=== PATIENT | male | born 1940 | race Caucasian/White ===

== ENCOUNTER 2022-05-24 16:00 | Outpatient (RCR) | payer MEDICARE, SELFPAY ==
--- NOTE | 2022-04-11 17:11 | PT.OPE ---
PT [facility] PT [facility] Out[facility] Eval Start: 04/11/22 12:32 Freq: Status: Active Protocol: Document 04/11/22 17:09 CIRAT (Rec: 04/11/22 17:10 CJT [id number]) E-signed By Steven Guerrero PT Physical Therapy Outpatient Evaluation Insurance Information Recert Due Date 05/25/22 Insurance Name Medicare B Medical Diagnosis M79.18 - Myalgia, other site Treating Diagnosis M25.552 - L hip pain Referring Nancy Titus MD Subjective Subjective Pt presents with L buttock pain on going for several months. Thinks that it started after he was attending a lot of medical appointments for his after she was diagnosed with cancer. Also notes that since his 's cancer diagnosis that he has been helping with a lot more shores around the house including cleaning, dishes, laundry, and making his bed and his 's bed. Pain is made worse with sitting in a hard chair. Pt denies pain in his back as well as shooting pain down his leg. Has been getting more Yeison horses down his L leg the last few months as well. Pt was diagnosed with PD two years ago. Has tremor in his L hand and is L handed. 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 [employer] Preferred Name Benito Precautions Therapy Limitations/Systems Review Not Limited Objective Other/Pertinent Objective Lumbar ROM Extension - 15 Flexion - can reach mid-fernando, notes pain in his ischial tuberosity region on L R/L Side Bend - 24/16 R/L Rotation - mild impairments B R Hip ROM Flexion - 120 Abduction - 35 IR/ER - 30/25 Extension - 0 L Hip ROM Flexion - 120 Abduction - 35 IR/ER - 25/25 Extension - 0 R knee ROM - WNL L knee ROM - WNL R Hip Strength Flexion - /5 MMT Abduction - 4/5 MMT Adduction - 5/5 MMT IR - 5/5 MMT ER - 5/5 MMT Extension - DNT L Hip Strength Flexion - 3/5 MMT Abduction - 4/5 MMT Adduction - 4/5 MMT IR - 5/5 MMT ER - 5/5 MMT Extension - DNT R knee Extension - 5/5 MMT R Knee Flexion - 5/5 MMT L knee Extension - 5/5 MMT L knee Flexion - 4/5 MMT * pain at ischial tuberosity R ankle DF - 5/5 MMT L ankle DF - 5/5 MMT Palpation: pt reports pain/ tenderness with palpation to proximal hamstring tendon at ischial tuberosity on L Gait: antalgic gait on L Assessment Assessment/Impression Pt is an 81 year old male who presents to PT clinic with L buttock pain. Pain is centrally located in L gluteal region. Pain is made worse with direct palpation to L ischial tuberosity. Strength and ROM is limited in B hips and pt does note occasional radiating pain into his groin. Motions that stretch his L hamstring or create resistance to his L hamstring also reproduce his symptoms. Benito seems to be dealing with a minor hamstring strain that is healing very slowly and or slowly getting worse as he continues to use poor body mechanics with chores around the house. The nature of the pts condition was explained and all questions were answered to the pts satisfaction. Skilled PT services are medically necessary to address deficits and return patient to highest level of function. Recommend physical therapy sessions 2/ week for 6 weeks. Pt agrees with this plan. Printout of HEP was given for I completion and pt gives verbal understanding of each exercise . Plan of Care Rehabilitation Potential Good Physical Therapy Goals STG - To be completed in 2-3 weeks: 1. Pt will report reduction in posterior hip pain by factor of 2 so that they may sit for dinner with family. 2. Pt will demo ability to perform 15 hamstring curls with RTB without increase in his pain as indication of healing hamstring tendon on L. LTG - To be completed in 8 weeks: 1. Pt to be I with HEP so that they may I manage progression of symptoms. 2. Pt will demo equal and pain free motion in B hips to reduce straining forces in SIJ and pelvis with ambulation. 3. Pt will report max 2/10 discomfort with activities such as walking and sitting so that they may shop for groceries and sit to watch movies with family with minimal pain. 4. Pt will demo ability to walk at top speed without increase in hamstring pain as indication of proper firing of proximal HS tendon with eccentric motions used during ambulation. Treatment Plan/Direct Interventions Gait Training,Heat,Ice/Cold/ Vasopneumatic,Joint Mobilization,Manual Therapy, Neuromuscular Re-ed,Self-Care/ Home Management,Therapeutic Exercises,Ultrasound Frequency/Duration 2/week for 6 weeks Patient Will Be Discharged From Therapy Completion of LTG(s),Skills Plateau,Independent w/HEP, Independently Progressing Evaluation Billing Untimed Code Treatment Minutes 35 PT Eval No Charge No Complexity Low Certification Information Initial Certification Date 04/11/22 Ending Certification Date 05/25/22 Provider Signature Shows Agreement With POC & Medical Necessity Physician Signature & Date Requested Please Sign/Date Here Physician Comment/Change : Physician NPI Number #
== END 2022-06-22 10:16 | disposition home or self-care (01) ==
PROVIDERS: PCP Internal Medicine; Visit Provider Internal Medicine
DX: M79.18 Myalgia, other site (principal); Z51.89 Encounter for other specified aftercare
CPT/HCPCS: 97032; 97110; 97140; 97161

== ENCOUNTER 2023-02-21 14:33 | Emergency (ER) | payer MEDICARE, SELFPAY ==
[2023-02-21 14:37] VITALS: BP 112/69; PULSE 64; RESP 20; TEMP 36.6; O2SAT 98; BMI 26.6
--- NOTE | 2023-02-21 15:30 | CRLHL7_ITS ---
For Patients: As a result of the Cures Act, medical imaging exams and procedure reports are released immediately into your electronic medical record. You may view this report before your referring provider. If you have questions, please contact your health care provider. Indication: Pain and injury Comparison: None available. Technique: Standing AP, lateral, and sunrise views of the right knee were obtained Findings: There is no displaced fracture or dislocation. There is mild tricompartmental degenerative change with medial joint space loss and marginal osteophyte formation. There is minimal tibial spine spurring. There is mild prepatellar soft tissue swelling. Impression: Mild tricompartmental degenerative changes and prepatellar soft tissue swelling without displaced fracture. Dictated by Paulo Darby MD @ 02/21/2023 4:52:33 PM (Electronically Signed)
--- NOTE | 2023-02-21 15:55 | ED.NURSE ---
Patient back from radiology.
--- NOTE | 2023-02-21 17:18 | ED_ITS ---
HPI - General Adult General Date Seen: 02/21/23 Chief complaint: Extremity Pain/Injury, Lower Stated complaint: Fall Time Seen by Provider: 02/21/23 14:40 Source: patient Mode of arrival: ambulatory Limitations: no limitations History of Present Illness HPI narrative: Patient is an 82-year-old male who presents for evaluation of right knee pain which has been bothering him for the past week or so. He says Dexter was helping but the past couple of days it does not seem to be helping as much. He denies any injury. He says that it hurts to bend his knee to put a sock on. If he walks straight it does not bother him too much but with changes of direction he has pain primarily in the medial knee. He has not noted any swelling or redness, no other joint pains. No history of significant problems with the knee previously according to the patient, but I do see a previous arthroscopy on that side.. Related Data Previous Rx's Medication Instructions Recorded carbidopa 25 mg-levodopa 100 mg 2.5 tab PO TID #675 tabs 01/18/22 tablet atenolol 25 mg tablet 25 mg PO BID #180 tabs 08/28/22 lisinopril 20 mg tablet 20 mg PO DAILY #90 tabs 08/28/22 tamsulosin 0.4 mg capsule 0.4 mg PO DAILY #90 caps 08/28/22 Allergies Allergy/AdvReac Type Severity Reaction Status Date / Time No Known Allergies Allergy Unknown Verified 01/18/23 14:30 Review of Systems Status of ROS: Reports: 6 or more systems reviewed and unremarkable except as noted in History and below PFSH PFS Medical History History of alcoholism ?F10.21 - Alcohol dependence, in remission (ICD-10) Surgical History History of vasectomy ?Z98.52 - Vasectomy status (ICD-10) History of hernia repair ?Z98.890 - Other specified postprocedural states (ICD-10) ?Z87.19 - Personal history of other diseases of the digestive system (ICD-10) History of colonoscopy ?Z98.890 - Other specified postprocedural states (ICD-10) History of arthroscopy of right knee ?Z98.890 - Other specified postprocedural states (ICD-10) Family History Other Adopted Tremor Social History Narrative: has 4 children- 1 in motorcycle accident Smoking Status: Never smoker Do you use any of these nicotine containing products: None Second hand tobacco smoke exposure: No How often do you have a drink containing alcohol: never How often do you have six or more drinks on one occasion: Never AUDIT-C Alcohol total score: 0 Non-prescribed substance use: denies use Little interest or pleasure in doing things: not at all Feeling down, depressed, or hopeless: several days service: Yes Exam Narrative: Exam Narrative: Vital signs reviewed In general, alert, well-appearing elderly male. Extremities: Examination of the knee shows no swelling, effusion, erythema warmth. He has full range of motion although he notes pain with flexion. He has some tenderness along the medial joint line. Distal CMS is normal. Skin: Warm dry well perfused. Const: Vital Signs, click to edit/add: Vital Signs - 24 hr 02/21/23 14:37 Temperature 97.9 F Pulse Rate [Pulse Oximeter] 64 Respiratory Rate 20 Blood Pressure [Ri ght Upper Arm] 112/69 Pulse Oximetry 98 Oxygen Delivery Me thod Room Air Documenting provider has reviewed patient's vital signs: yes Course Course ED Course: I did x-rays of the right knee which by my review did not show any significant findings. Radiology notes mild degenerative changes and a little bit of soft tissue swelling anterior to the patella, which I do not really appreciate clinically. He notes that he would like to have something different for pain for couple of days, I would like him to continue with the Aleve which he actuall y stopped taking couple of days ago he says he did not feel it was controlling the pain. I think it be good to have the anti-inflammatory effect, he says he tolerates it fine in terms of his stomach. Make sure to take this with food and I would not take it for more than a few more days. I prescribed oxycodone #4, 1/2-1 tab if needed for more severe pain. Ice may be helpful as well. We made a follow-up appointment for him with Orthopedics to see if an injection would be beneficial or if further imaging is needed. Vital Signs Vital signs: Initial Vital Signs Temperature 97.9 F 02/21/23 14:37 Temperature Source Temporal Artery Scan 02/21/23 14:37 Pulse Rate 64 02/21/23 14:37 Respiratory Rate 20 02/21/23 14:37 Blood Pressure 112/69 02/21/23 14:37 Blood Pressure Mean 83 02/21/23 14:37 Blood Pressure Position Sitting 02/21/23 14:37 Pulse Oximetry 98 02/21/23 14:37 Oxygen Delivery Method Room Air 02/21/23 14:37 Vital Signs Temperature 97.9 F 02/21/23 14:37 Pulse Rate 64 02/21/23 14:37 Respiratory Rate 20 02/21/23 14:37 Blood Pressure 112/69 02/21/23 14:37 Pulse Oximetry 98 02/21/23 14:37 Oxygen Delivery Method Room Air 02/21/23 14:37 Temperature 97.9 F 02/21/23 14:37 Pulse Rate 64 02/21/23 14:37 Respiratory Rate 20 02/21/23 14:37 Blood Pressure 112/69 02/21/23 14:37 Pulse Oximetry 98 02/21/23 14:37 Oxygen Delivery Method Room Air 02/21/23 14:37 Discharge Plan Discharge Clinical Impression: Knee pain, right Patient Disposition: Home, Self-Care Condition: Stable Instructions: Knee Pain (ED) Additional Instructions: Continue with Aleve twice a day for few more days, make sure you take this with food. Oxycodone if needed for more severe pain. Orthopedic follow-up as scheduled. Be helpful as well. Prescriptions: No Action lisinopril 20 mg tablet 20 mg PO DAILY Qty: 90 3RF atenolol 25 mg tablet 25 mg PO BID Qty: 180 3RF tamsulosin 0.4 mg capsule 0.4 mg PO DAILY Qty: 90 3RF carbidopa-levodopa 25-100 mg tablet 2.5 tab PO TID Qty: 675 2RF Follow Up/Referrals: Nancy Chiu MD [Primary Care Provider] - Stand Alone [facility]: [facility] Inst[facility]
[2023-02-21 17:22] VITALS: BP 112/69; PULSE 64; RESP 20; TEMP 36.6
--- NOTE | 2023-02-21 17:26 | ED.NURSE ---
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
== END 2023-02-21 17:24 | disposition home or self-care (01) ==
PROVIDERS: Emergency Provider Emergency Medicine; PCP Internal Medicine
DX: M25.561 Pain in right knee (principal)
CPT/HCPCS: 73562; 99283

== ENCOUNTER 2023-05-23 11:43 | Outpatient (CLI) | payer MEDICARE, SELFPAY ==
--- OUTSIDE RECORDS SUMMARY | 2023-05-23 11:50 | XMS_ITS | Referral Summary ---
Author Name Unknown Organization [facility] Address [id number] [place] [address] Care Team Providers Care Cap Inspector Name Role Phone Li Meyer [facility] REP Unavailable [phone] [facility]- Primary Care Provider Allergies Active Allergy Reactions Criticality Noted Date Comments No Known Drug Allergy 10/22/2002 Medications Medication Sig Dispensed Refills Start Date End Date Status tamsulosin (FLOMAX) 0.4 MG capsuleIndications: Benign non-nodular prostatic hyperplasia with lower urinary tract symptoms,Urge incontinence of urine Take 2 capsules (0.8 mg) by mouth daily 180 capsule 1 11/23/2017 Active lisinopril (PRINIVIL/ZESTRIL) 20 MG tabletIndications:H TN, goal below 140/90 Take 1 tablet (20 mg) by mouth daily 90 tablet 1 06/19/2018 Active metoprolol tartrate (LOPRESSOR) 50 MG tabletIndications:H TN, goal below 140/90 TAKE 1 TABLET(50 MG) BY MOUTH TWICE DAILY 180 tablet 1 06/19/2018 Active Additional Information Patient taking differently: 100 mg DAILY, TAKE 1 TABLET(50 MG) BY MOUTH TWICE DAILY, Reported on 02/03/2019 Vitamin D, Cholecalciferol, 25 MCG (1000 UT) CAPS Take 1,000 Units by mouth daily as needed (Takes daily between and ) 0 Active ferrous gluconate (FERGON) 324 (38 Fe) MG tabletIndications:Haven ang GI bleed Take 1 tablet (324 mg) by mouth daily (with breakfast) 30 tablet 1 02/04/2019 Active Active Problems Problem Noted Date Diagnosed Date Lower GI bleed 02/03/2019 Urge incontinence of urine 05/16/2015 Benign non-nodular prostatic hyperplasia with lower urinary tract symptoms 05/16/2015 Essential and other specified forms of tremor HTN, goal below 140/90 07/06/2013 Advance Care Planning 01/28/2013 Overview: Advance Care Planning: Receipt of ACP document: Received: Health Care Directive which was witnessed or notarized on 07/07/14. Document not previously scanned. Validation form completed and scanned. Code Status needs to be updated to reflect choices in most recent ACP document. Confirmed/documented designated decision maker(s). See permanent comments section of demographics in clinical tab. View document(s) and details by clicking on code status. Added by Salvador Mcneill on 07/07/2014. Advance Care Planning: Initial facilitation introduction: Homero Zaldivarmarguerite presented for initial session regarding ACP at a group session. He was accompanied by . Honoring Choices information provided and resources reviewed. He currently wishes to complete an ACP document. He currently has the following questions or concerns about Advance Care Planning: none. Confirmed/documented designated decision maker(s). See permanent comments section of demographics in clinical tab. Added by Salvador Mcneill on 07/07/2014 S/P colonoscopy 01/22/2013 Overview: Repeat in 5 yrs or 2018 Over weight 12/11/2012 Benign essential tremor 01/03/2012 Diverticulosis of colon 07/13/2011 Gout 10/10/2010 Overview: Quality/mj Anxiety 04/12/2010 CARDIOVASCULAR SCREENING; LDL GOAL LESS THAN 130 02/12/2010 Elevated fasting blood sugar 10/15/2009 Low back pain 07/05/2008 Sciatica 07/05/2008 Effusion of lower leg joint 06/15/2004 Overview: R knee pain, Xrays negative, doesn't think PT will help; has seen Dr. Kelly in the past. 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 Provider to review L foot pain, intermittent [729.5] [729.5] 2003 Overview: neat ball and 1st MTP, painful to bear weight CERVICALGIA [723.1] [723.1] 11/15/2003 Overview: R hand IDIO PERIPH NEURPTHY NEC [356.8] 11/15/2003 Overview: R hand Essential hypertension 10/30/2002 Overview: Problem list name updated by automated process. Provider to review Chem Dep in recovery 10/30/2002 Immunizations Name Administration Dates Next Due COVID-19 MONOVALENT 12+ (Pfizer) 01/26/2021 Influenza (High Dose) 3 dennis nt vaccine 02/09/2019,02/04/2018,03/16/2017,2016,02/17/2014,01/03/2012 Influenza (IIV3) PF 02/27/2010,02/25/2008,2005 Influenza Vaccine 65+ (Fluzone HD) 01/26/2021 Pneumo Conj 13-V (2010&after) 04/17/2016 Pneumococcal 23 valent 02/04/2018,02/25/2008 TD,PF 7+ (Tenivac) 12/14/2005 TDAP Vaccine (Adacel) 09/13/2016 Social History Tobacco Use Types Packs/Day Years Used Date Smoking Tobacco: Former Cigarettes 2 5 Q uit: 01/05/1962 Smokeless Tobacco: Never Comments:1961 Alcohol Use Standard Drinks/Week Comments No 0 (1 standard drink = 0.6 oz pur e alcohol) 6 months sober on 04/29/04 PHQ-2 Answer Date Recorded PHQ-2 Score 0 04/29/2018 Adolescent Education Answer Date Record ed Getting School Help Needed Not on file 01/20 Sex and Gender Information Value Date Recorded Sex Assigned at Not on file Gender Identity Not on file Sexual Orientation Not on file Last Filed Vital Signs Vital Sign Reading Time Taken Comments Blood Pressure 146/95 08/12/2020 5:45 PM CDT Pulse 54 08/12/2020 5:45 PM CDT Temperature 36.6 ??C (97.9 ??F) 08/12/2020 5:09 PM CD T Respiratory Rate 18 08/12/2020 5:45 PM CDT Oxygen Saturation 96% 08/12/2020 5:45 PM CDT Inhaled Oxygen Concentration - - Weight 81.6 kg (180 lb) 04/10/2019 8:50 AM HOROLOGIST Height 172.7 cm (5' 8) 04/10/2019 8:50 AM HOROLOGIST Body Mass Index 27.37 04/10/2019 8:50 AM HOROLOGIST Plan of Treatment Not on file Advance Directives For more information, please contact: [phone] Documents on File Type Date Recorded 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 Expl anation Advance Directives and Living Will 07/07/2014 Health Care Directiv e 07/07/14 Latest Code Status on File Code Status Date Activated Date Inactivated Comments Full Code 02/04/2019 1:19 PM 04/10/2019 8:27 AM Question Answer Comments Code status determined by: Discussion wi th patient/legal decision maker Code Status History Code Status Date Activated Date Inactivated Comments Full Code 02/03/2019 10:35 PM 02/04/2019 1:19 PM Question Answer Comments Code status determined by: Discussion wi th patient/legal decision maker Care Teams Cap Inspector Relationship Specialty Start Date End Date [facility]- [address] [place] [address] PCP - General 04/10/19 Li Meyer APRN [facility] [address] [place] [address] Nurse Practitioner Nurse Practitioner 02/17/14
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
--- OUTSIDE RECORDS SUMMARY | 2023-05-23 11:50 | XMS_ITS | Encounter Summary ---
Author Name Unknown Organization [place] Address [address] [facility] [place] [address] Care Team Providers Care Tape Edge Machine Operator Name Role Phone Li Meyer CARLOS TEACHER VOCAL Unavailable + [phone] Martha Ramires MD Primary Care Prov ider Martha Ramires MD Unavailable + Martha Ramires MD Unavailable + [facility] Reason for Visit * Reason Comments Medication Refill ibuprofen (ADVIL/MOT RIN) 600 MG tablet Encounter Details Date Type Department Care Team (Late st Contact Info) Description 09/12/2016 Refill [facility] [id number] [place] [address] [phone] Martha Ramires MD PRIMARY ENT [address] [facility] [address] [place] [id number] Medication Refill (ibuprofen (ADVIL/MOTRIN) 600 MG tablet) Social History Tobacco Use Types Packs/Day Years [...] on file documented as of this encounter Miscellaneous Notes * Telephone Encounter - Terrie Domínguez RN - 09/13/2016 8:07 AM CDT Due for visit and labs. Appt today. Sent to provider in case want to change med at visit. Terrie Domínguez RN * Telephone Encounter - Jazmyne Prajapati - 09/12/2016 8:25 AM CDT ibuprofen (ADVIL/MOTRIN) 600 MG tablet Last Written Prescription Date: 02/10/16 Last Quantity: 90, # refills: 1 Last Office [place] [facility] [place] [facility] prescribing provider: 04/17/2016 Next 5 appointments (look out 90 days) Sep 13, 2016 3:45 PM CDT SHORT with Martha Ramires MD [facility] [address] [place] [address] [phone] Creatinine Date Value Ref Range Status 10/03/2015 0.95 0.66 - 1.25 mg/dL Final Lab Results Component Value Date AST 12 10/03/2015 Lab Results Component Value Date ALT 10/03/2015 BP Readings from Last 3 Encounters: 04/17/16 138/88 06/20/15 138/87 05/16/15 160/80 ELVIS Howell September 12, 2016 8:26 AM documented in this encounter Plan of Treatment Not on file documented as of this encounter Visit Diagnoses Diagnosis Sprain of left knee, unspecified ligament, initial encounter documented in this encounter Care Teams Tape Edge Machine Operator Relationship Specialty [place] [address] [place] [address] PCP - General Family Practice 04/17/16 02/02/19 Martha Ramires MD PRIMARY ENT [address] [place] [address] PCP - Assigned PCP 05/22/15 06/17/18 [facility] [address] [place] [address] PCP - General 02/03/19 04/09/19 [facility] [address] [place] [address] PCP - General 04/10/19 Li Meyer APRN TEACHER VOCAL [address] [place] [address] Nurse Practitioner Nurse Practitioner 02/17/14 Martha Ramires MD PRIMARY ENT [address] [place] [address] Assigned PCP 05/22/15 11/26/20 documented as of this encounter
--- OUTSIDE RECORDS SUMMARY | 2023-05-23 11:50 | XMS_ITS | Encounter Summary ---
Author Name Unknown Organization [place] Address [address] [facility] [address] Care Team Providers Care Public Health Policy Analyst Name Role Phone Li Meyer CARLOS UTILITY MECHANIC SUPERVISOR Unavailable + [phone] Martha Ramires MD Primary Care Prov ider Martha Ramires MD Unavailable + Martha Ramires MD Unavailable + [facility]- Primary Care Provider [facility]- Primary Care Provider Reason for Visit * Reason Onset Date Comments Medication Refill 12/12/2017 ibuprofen (ADV IL/MOTRIN) 600 MG tablet Encounter Details Date Type Department Care Team (Late st Contact Info) Description 12/12/2017 Refill [facility] [address] [place] [phone] Martha Ramires MD PRIMARY ENT [address] [facility] [address] [place] [address] Medication Refill (ibuprofen (ADVIL/MOTRIN) 600 MG tablet) [...] Telephone Encounter - Terrie Domínguez RN - 12/12/2017 11:41 AM CDT Images from the original note were not included. Failing protocol due to age. Using regularly. Sent to provider. Please advise. Terrie Domínguez RN 11/23/17 ?? 6. Osteoarthritis of multiple joints, unspecified osteoarthritis type - ibuprofen (ADVIL/MOTRIN) 600 MG tablet; TAKE 1 TABLET(600 MG) BY MOUTH EVERY 8 HOURS NEEDED FOR MODERATE PAIN Dispense: 30 tablet; Refill: 1 - Comprehensive metabolic panel - CBC with platelets ?? See Patient Instructions ?? Martha Ramires MD [facility] Instructions Return in about 6 months (around 05/26/2018) for medication recheck. * Telephone Encounter - Jazmyne Prajapati - 12/12/2017 8:53 AM CDT Requested Prescriptions Pending Prescriptions Disp Refills ??? ibuprofen (ADVIL/MOTRIN) 600 MG tablet [Pharmacy Med Name: IBUPROFEN 600MG TABLETS] 30 tablet 0 Last Written Prescription Date: 11/23/17 Last Fill Quantity: 30, # refills: 1 Last Office Visit: 11/23/2017 Future Office Visit: Sig: TAKE 1 TABLET(600 MG) BY MOUTH EVERY 8 HOURS NEEDED FOR MODERATE PAIN NSAID Medications Failed 12/12/2017 8:11 AM Failed - Patient is age 6-64 years Passed - Blood pressure under 140/90 in past 12 months BP Readings from Last 3 Encounters: 11/23/17 132/82 11/22/16 130/72 09/27/16 130/78 Passed - Normal ALT on file in past 12 months Recent Labs Lab Test 11/23/17 1125 ALT 17 Passed - Normal AST on file in past 12 months Recent Labs Lab Test 11/23/17 1125 AST 11 Passed - Recent (12 mo) or future (30 days) visit within the authorizing provider's specialty Patient had office visit in the last 12 months or has a visit in the next 30 days with authorizing provider or within the authorizing provider's specialty. See Patient Info tab in inbasket, or Choose Columns in Meds & Orders section of the refill encounter. Passed - Normal CBC on file in past 12 months Recent Labs Lab Test 11/23/17 1125 WBC 8.8 RBC 4.77 HGB 13.9 HCT 42.3 PLT 250 For [facility] ONLY: [id number] = WBC, EHGN411 = RBC Passed - Normal serum creatinine on file in past 12 months Recent Labs Lab Test 11/23/17 1125 CR 0.88 documented in this encounter Plan of Treatment Not on file documented as of this encounter Visit Diagnoses Diagnosis Osteoarthritis of multiple joints, unspecified osteoarthritis type documented in this encounter Care Teams Public Health Policy Analyst Relationship Specialty [place] [address] [place] [address] PCP - General Family Practice 04/17/16 02/02/19 Martha Ramires MD PRIMARY ENT [address] [facility] [address] [address] PCP - Assigned PCP 05/22/15 06/17/18 [facility]- [address] [place] [address] PCP - General 02/03/19 04/09/19 [facility]- [address] [place] [address] PCP - General 04/10/19 Li Meyer APRN [facility] [address] [place] [address] Nurse Practitioner Nurse Practitioner 02/17/14 Martha Ramires MD PRIMARY ENT [address] [facility] [address] [place] [address] Assigned PCP 05/22/15 11/26/20 documented as of this encounter
--- OUTSIDE RECORDS SUMMARY | 2023-05-23 11:50 | XMS_ITS | Clinical Summary ---
Author Name Unknown Organization [place] Address [address] [facility] [place] [address] Care Team Providers Care Ecologist Name Role Phone Li Meyer CARLOS ACCESS NURSE Unavailable [phone] [facility]- Primary Care Provider Allergies [...] 7+ (Tenivac) 12/14/2005 TDAP Vaccine (Adacel) 09/13/2016 Family History * Patient is adopted Medical History Relation Comments Respiratory Son 1 asthma Relation Status Comments Father Maternal Grandfather Maternal Grandmother Mother Other Other Homreo is Adopted Paternal Grandfather Paternal Grandmother Son 1 Alive Son 2 Alive Son 3 Alive Social History Tobacco Use Types Packs/Day Years [...] 81.6 kg (180 lb) 04/10/2019 8:50 AM INSULATION EXTRUDER OPERATOR Height 172.7 cm (5' 8) 04/10/2019 8:50 AM INSULATION EXTRUDER OPERATOR Body Mass Index 27.37 04/10/2019 8:50 AM INSULATION EXTRUDER OPERATOR Plan of Treatment Health Maintenance Due Date Last Done Comments ANNUAL REVIEW OF HM ORDERS 1940 CT COLONOGRAPHY 1940 FLEX SIG 1940 sDNA (Cologuard) 1940 ZOSTER IMMUNIZATION (1 of 2) 1990 RSV VACCINE ( & 60+) (1 - 1-dose 60+ series) 2000 MEDICARE ANNUAL WELLNESS VISIT 03/09/2009 03/09/2008 FALL RISK ASSESSMENT 11/23/2018 11/23/2017, 09/27/2016, 04/17/2016, Additional history exists LIPID 02/18/2019 02/18/2014, 11/13, 02/15/2009, Additional history exists ADVANCE CARE PLANNING 07/08/2019 07/07/2014, 013 FIT 02/04/2020 02/03/2019 CBC 08/12/2021 08/12/2020, 01/14, 02/03/2019, Additional history exists CMP 08/12/2021 08/12/2020, 01/14, 11/23/2017, Additional history exists COVID-19 Vaccine ( season) 2022 01/26/2021, 06/25/2020, 06/04/2020 INFLUENZA VACCINE (#1) 2022 , 02/09/2019, 02/04/2018, Additional history exists PHQ-2 (once per calendar year) 2023 09/27/2016, 04/17/2016, 01/05/2015 COLONOSCOPY 04/10/2024 04/10/2019, 03/16, 01/21/2013, Additional history exists COLORECTAL CANCER SCREENING 04/10/2024 DTAP/TDAP/TD IMMUNIZATION (2 - Td or Tdap) 09/13/2026 09/13/2016, 12/14/2005 Pneumococcal Vaccine: 65+ Years Completed 02/04/2018, 04/17/2016, 02/25/2008 HPV IMMUNIZATION Aged Out No longer e ligible based on patient's age to complete this topic IPV IMMUNIZATION Aged Out No longer e ligible based on patient's age to complete this topic MENINGITIS IMMUNIZATION Aged Out No l onger eligible based on patient's age to complete this topic RSV MONOCLONAL ANTIBODY Aged Out No l onger eligible based on patient's age to complete this topic Advance Directives For more information, please contact: [phone] Documents on File Type Date Recorded Patient Sidehand Expl anation Advance Directives and Living Will [...] wi th patient/legal decision maker Care Teams Ecologist Relationship Specialty Start Date End Date [facility]- [address] [place] [address] PCP - General 04/10/19 Li Meyer APRN ACCESS NURSE [address] [place] [address] Nurse Practitioner Nurse Practitioner 02/17/14
--- OUTSIDE RECORDS SUMMARY | 2023-05-23 11:50 | XMS_ITS | Encounter Summary ---
Author Name Unknown Organization [place] Address [address] [facility] [place] [address] Care Team Providers Care Marketing And Outreach Coordinator Name Role Phone Li Meyer CARLOS SPECIAL FORCES ENGINEER SERGEANT Unavailable + [phone] Martha Ramires MD Primary Care Prov ider Martha Ramires MD Unavailable + Martha Ramires MD Unavailable + [facility]- Primary Care Provider [facility]- Primary Care Provider Reason for Visit * Reason Comments Medication Refill ibuprofen (ADVIL/MOT RIN) 600 MG tablet Encounter Details Date Type Department Care Team (Late st Contact Info) Description 08/21/2017 Refill [facility] [address] [place] [address] [phone] Martha Ramires MD PRIMARY ENT [address] [facility] [address] [place] [id number] Medication Refill (ibuprofen (ADVIL/MOTRIN) 600 MG tablet) [...] Telephone Encounter - Terrie Domínguez RN - 08/21/2017 2:49 PM CDT Images from the original note were not included. Advised in May to see MD. Please advise. Terrie Domínguez RN July 18, 2017 ? 11:30 AM You routed this conversation to Martha Ramires MD Me ?? 11:18 AM Note Does not meet protocol. See below. Sent to provider. Terrie Domínguez RN ? Associated Diagnoses ? Sprain of left knee, unspecified ligament, initial encounter [S83.92XA] ? June 03, 2017 ? 2:35 PM Chevy Mark MD routed this conversation to [facility] Chevy Mark MD ?? 2:34 PM Note ? Sent See MD. Lab in September Chevy Velasquez. Deedee ? 1:54 PM You routed this conversation to Chevy Mark MD Nh ?? 1:51 PM Note ? Failing below. ??Was for a knee sprain. ??Should this still be ongoing? ??Please advise. ??Terrie Domínguez RN ? Associated Diagnoses? Sprain of left knee, unspecified ligament, initial encounter??[S83.92XA] ? NSAID Medications Failed06/01 3:46 AM ? Normal ALT on file in past 12 months Normal AST on file in past 12 months Patient is age 6-64 years Normal CBC on file in past 12 months ? NSAID Medications Failed08/21 2:27 PM Normal ALT on file in past 12 months Normal AST on file in past 12 months Patient is age 6-64 years Normal CBC on file in past 12 months * Telephone Encounter - Zahraa King - 08/21/2017 2:26 PM CDT Requested Prescriptions Pending Prescriptions Disp Refills ??? ibuprofen (ADVIL/MOTRIN) 600 MG tablet [Pharmacy Med Name: IBUPROFEN 600MG TABLETS] Last Written Prescription Date: 06/03/17 Last Fill Quantity: 90 tablet, # refills: 0 Last office visit: 11/22/2016 with prescribing provider: Cate 11/22/16 Future Office Visit: 90 tablet 0 Sig: TAKE 1 TABLET(600 MG) BY MOUTH EVERY 8 HOURS NEEDED FOR MODERATE PAIN NSAID Medications Failed 08/21/2017 3:49 AM Failed - Normal ALT on file in past 12 months Recent Labs Lab Test 10/03/15 1323 ALT 21 Failed - Normal AST on file in past 12 months Recent Labs Lab Test 10/03/15 1323 AST 12 Failed - Patient is age 6-64 years Failed - Normal CBC on file in past 12 months Recent Labs Lab Test 02/18/14 0910 WBC 7.6 RBC 4.86 HGB 13.8 HCT 42.5 PLT 218 Passed - Blood pressure under 140/90 in past 12 months BP Readings from Last 3 Encounters: 11/22/16 130/72 09/27/16 130/78 09/13/16 150/88 Passed - Recent (12 mo) or future (30 days) visit within the authorizing provider's specialty Patient had office visit in the last 12 months or has a visit in the next 30 days with authorizing provider or within the authorizing provider's specialty. See Patient Info tab in inbasket, or Choose Columns in Meds & Orders section of the refill encounter. Passed - Normal serum creatinine on file in past 12 months Recent Labs Lab Test 09/13/16 1654 CR 1.16 documented in this encounter Plan of Treatment Not on file documented as of this encounter Visit Diagnoses Diagnosis Sprain of left knee, unspecified ligament, initial encounter documented in this encounter Care Teams Marketing And Outreach Coordinator Relationship Specialty [place] [address] [place] [address] PCP - General Family Practice 04/17/16 02/02/19 Martha Ramires MD PRIMARY ENT [address] [facility] [address] [place] [address] PCP - Assigned PCP 05/22/15 06/17/18 [facility]- [address] [place] [address] PCP - General 02/03/19 04/09/19 [facility]- [address] [place] [address] PCP - General 04/10/19 Li Meyer APRN CNP [address] [place] [address] Nurse Practitioner Nurse Practitioner 02/17/14 Martha Ramires MD PRIMARY ENT [address] [facility] [address] [place] [address] Assigned PCP 05/22/15 11/26/20 documented as of this encounter
--- OUTSIDE RECORDS SUMMARY | 2023-05-23 11:50 | XMS_ITS | Encounter Summary ---
Author Name Unknown Organization [place] Address [address] [facility] [place] [address] Care Team Providers Care Cutter Inspector Name Role Phone Li Meyer CARLOS UNIVERSAL BANKER Unavailable [phone] Martha Ramires MD Primary Care Prov ider Martha Ramires MD Unavailable + Martha Ramires MD Unavailable + [facility]- Primary Care Provider [facility]- Primary Care Provider Reason for Visit * Reason Comments Medication Refill Lisinopril, Tamsulos in Encounter Details Date Type Department Care Team (Late st Contact Info) Description 10/22/2017 Refill [facility] [id number] [place] [address] [phone] Martha Ramires MD PRIMARY ENT [address] [facility] [address] [place] [id number] Medication Refill (Lisinopril, Tamsulosin) Social History Tobacco Use Types Packs/Day Years [...] Telephone Encounter - Terrie Domínguez RN - 10/24/2017 1:00 PM CDT calling back and states he is having eye issues and seeing eye surgeon tomorrow. Would really appreciate if medications could be approved for now. Discussed was also called last month so gettingquite overdue. States everything bad that can happen has been happening so if could get extension would really appreciate. Sent to provider to review. Terrie Domínguez RN * Telephone Encounter - Terrie Domínguez RN - 10/24/2017 11:30 AM CDT L/M to call. Terrie Domínguez RN * Telephone Encounter - Terrie Domínguez RN - 10/23/2017 2:04 PM CDT Images from the original note were not included. Message left last month. Needs visit and labs. L/M with for him to call back. Terrie Domínguez RN September 21, 2017 Lisa Corbin RN ?? 8:26 AM Note LM pt needs OV and labs ?? Prescription approved per [facility] Refill Protocol. For 30 day fill ?? Lisa oCrbin RN * Telephone Encounter - Gavi Hicks - 10/22/2017 7:55 AM CDT Requested Prescriptions Pending Prescriptions Disp Refills ??? lisinopril (PRINIVIL/ZESTRIL) 20 MG tablet [Pharmacy Med Name: LISINOPRIL 20MG TABLETS] 30 tablet 0 Sig: TAKE 1 TABLET BY MOUTH DAILY MABEL Inhibitors (Including Combos) Protocol Failed 10/22/2017 3:48 AM Failed - Normal serum creatinine on file in past 12 months Recent Labs Lab Test 09/13/16 1654 CR 1.16 Failed - Normal serum potassium on file in past 12 months Recent Labs Lab Test 09/13/16 1654 POTASSIUM 4.1 Passed - Blood pressure under 140/90 in [...] section of the refill encounter. Passed - Patient is age 18 or older Last Written Prescription Date: 09/21/17 Last Fill Quantity: 30 tablet, # refills: 0 Last office visit: 11/22/2016 with prescribing provider: Keyla Future Office Visit: Notes to Pharmacy: One time 30 day fill pt needs office visit ??? tamsulosin (FLOMAX) 0.4 MG capsule [Pharmacy Med Name: TAMSULOSIN 0.4MG CAPSULES] 90 capsule 0 Sig: TAKE 1 CAPSULE(0.4 MG) BY MOUTH DAILY Alpha Blockers Passed 10/22/2017 3:48 AM Passed - Blood pressure under 140/90 in [...] section of the refill encounter. Passed - Patient does not have Tadalafil, Vardenafil, or Sildenafil on their medication list Passed - Patient is 18 years of age or older Last Written Prescription Date: 04/19/17 Last Fill Quantity: 90 capsule, # refills: 1 Last office visit: 11/22/2016 with prescribing provider: Keyla Future Office Visit: documented in this encounter Plan of Treatment Not on file documented as of this encounter Visit Diagnoses Diagnosis HTN, goal below 140/90 Unspecified essential hypertension Urge incontinence of urine Urge incontinence Benign non-nodular prostatic hyperplasia with lower urinary tract symptoms documented in this encounter Care Teams Cutter Inspector Relationship Specialty [place] [address] [place] [address] PCP - General Family Practice 04/17/16 02/02/19 Martha Ramires MD PRIMARY ENT [address] [facility] [address] [place] [address] PCP - Assigned PCP 05/22/15 06/17/18 [facility]- [address], [place] [address] PCP - General 02/03/19 04/09/19 [facility]- [address] [place] [address] PCP - General 04/10/19 Li Meyer APRN CNP [address] [place] [address] Nurse Practitioner Nurse Practitioner 02/17/14 Martha Ramires MD PRIMARY ENT [address] [facility] [address] [place] [address] Assigned PCP 05/22/15 11/26/20 documented as of this encounter
--- OUTSIDE RECORDS SUMMARY | 2023-05-23 11:51 | XMS_ITS | Encounter Summary ---
Author Name Unknown Organization [place] Address [address] [facility] [place] [address] Care Team Providers Care Manager Brand Name Role Phone Li Meyer CARLOS DIRECTOR OF PHOTOGRAPHY Unavailable [phone] Martha Ramires MD Primary Care Prov ider Martha Ramires MD Unavailable + Martha Ramires MD Unavailable + [facility]- Primary Care Provider [facility]- Primary Care Provider Encounter Details Date Type Department Care Team (Late st Contact Info) Description 10/10/[address] [phone] Lida Chao MD XXX [place] [address] ER ENCOUNTER (Primary Dx) Social History Tobacco Use Types Packs/Day Years [...] as of this encounter Progress Notes * 10/10/2002 11:59 PM [id number] 00:00 Emergency Department Encounter-CAITLYN RAZO) [Entered: 00:00 Display Decorator ([facility])] : 40 CHIEF COMPLAINT: Eye pain. HISTORY OF PRESENT ILLN ESS: Amrik Young is a 52-year-old man who was struck in the right eye with a piece of angle iron. This was at work. He had some blurry vision now and irritation that happened this morning. The pat ient was wearing safety glasses but it brushed up under the lens. MEDICATIONS: Prinzide. ALLERGIES: None known to medications. PAST MEDICAL HISTORY: Hypertension. PHYSICAL EXAM: Blood pressure 135/69 , pulse 87, respiratory rate 20, temperature 97.8. Visual acuity was 20/40, left eye, 20/70 right ey e. HEENT: Conjunctiva a little bit reddened on the right eye. Pupils equal, round and reactive to lig ht. No hyphema. Corneal abrasion is in the midline just below the right pupil. Slit lamp exam done . There is no corneal perforation. DIAGNOSIS: Corneal abrasion, right eye. DISPOSITION: Discharged to home on Cyloxan eye drops, Ophthalmology recheck on Saturday, no further work today. Cold compress to the eye. Advil for pain. _ CAITLYN VÁZQUEZ MD MT: Document: [id number] [place], [place] Name: AMRIK YOUNG MERGENCY ROOM ENCOUNTER Page 2 of 1 LCN: ER DSC: 10/10/2002 [place], [place] Name: AMRIK YOUNG MR#: : Admit Date: [birth year]40-09-04-35 1940 10/10/2002 Doctor: CAITLYN VÁZQUEZ MD EMERGENCY ROOM ENCOUNTER Page 1 of 1 Electronically filed by Danyelle Gomez 2:43 PM documented in this encounter Plan of Treatment Not on file documented as of this encounter Visit Diagnoses Diagnosis ER ENCOUNTER- Primary documented in this encounter Care Teams Manager Brand Relationship Specialty Start Date [place] [address] [place] [address] PCP - General Family Practice 04/17/16 02/02/19 Martha Ramires MD PRIMARY ENT [address] [place] [address] PCP - Assigned PCP 05/22/15 06/17/18 [facility]- [address] [place] [address] PCP - General 02/03/19 04/09/19 [facility]- [address] [place] [address] PCP - General 04/10/19 Li Meyer APRN DIRECTOR OF PHOTOGRAPHY [address] [place] [address] Nurse Practitioner Nurse Practitioner 02/17/14 Martha Ramires MD PRIMARY ENT [address] [facility] [address] [place] [address] Assigned PCP 05/22/15 11/26/20 documented as of this encounter
== END 2023-05-23 11:44 | disposition home or self-care (01) ==
LOC: NFLDREF 11:48
PROVIDERS: PCP Internal Medicine; Visit Provider Internal Medicine
DX: I10 Essential (primary) hypertension (principal)
CPT/HCPCS: 80048

== ENCOUNTER 2023-10-12 17:49 | Emergency (ER) | payer MEDICARE, SELFPAY ==
[2023-10-12 17:57] VITALS: BP 209/98; PULSE 60; RESP 16; TEMP 36.2; O2SAT 97; BMI 26.6
--- NOTE | 2023-10-12 18:04 | ED_ITS ---
HPI - Nausea/Vomiting/Diarrhea General Time Seen by Provider: 18:04 Date Seen: 10/12/23 Chief complaint: Nausea/Vomiting Stated complaint: High BP Time Seen by Provider: 10/12/23 18:02 Source: patient, family, RN notes reviewed and old records reviewed Mode of arrival: ambulatory Limitations: no limitations History of Present Illness HPI Narrative: 83-year-old male with history of Parkinson's disease and hypertension, presents today with vomiting and elevated blood pressure. Notes that his blood pressure has been rest steadily rising during the course the day, vomited once after lunch and then again just before coming in the emergency department. Denies abdominal pain, does have some loose stools today. Denies urinary symptoms. No chest pain or shortness of breath. Patient reports he did miss 1 dose of his Parkinson's medicine today, otherwise has a pillbox that he uses and reports that he has not missed any doses of medication Related Data Home Medications ?Medication ?Instructions ?Recorded ?Confirmed amantadine HCl 100 mg capsule 100 mg PO DAILY 05/23/23 10/12/23 carbidopa 25 mg-levodopa 100 mg 3 tab PO Q8H 05/23/23 10/12/23 tablet rivastigmine tartrate 1.5 mg 1.5 mg PO BID 05/23/23 10/12/23 capsule Previous Rx's ?Medication ?Instructions ?Recorded atenolol 25 mg tablet 25 mg PO BID #180 tabs 07/26/23 lisinopril 20 mg tablet 20 mg PO DAILY #90 tabs 08/19/23 tamsulosin 0.4 mg capsule 0.4 mg PO DAILY #90 caps 08/30/23 Allergies Allergy/AdvReac Type Severity Reaction Status Date / Time No Known Allergies Allergy Unknown Verified 08/27/23 09:10 [facility] Surgical History (Updated 08/27/23 @ 09:11 by Yolande Head ~ [facility], [facility]) History of vasectomy ?Z98.52 - Vasectomy status (ICD-10) History of hernia repair ?Z98.890 - Other specified postprocedural states (ICD-10) ?Z87.19 - Personal history of other diseases of the digestive system (ICD-10) History of colonoscopy ?Z98.890 - Other specified postprocedural states (ICD-10) History of arthroscopy of right knee ?Z98.890 - Other specified postprocedural states (ICD-10) Family History Other Adopted Tremor Social History Narrative: has 4 children- 1 in motorcycle accident Smoking Status: Never smoker Do you use any of these nicotine containing products: None Second hand tobacco smoke exposure: No How often do you have a drink containing alcohol: never How often do you have six or more drinks on one occasion: Never AUDIT-C Alcohol total score: 0 Non-prescribed substance use: denies use Little interest or pleasure in doing things: several days Feeling down, depressed, or hopeless: several days service: Yes Exam Narrative: Exam Narrative: General: Well-developed and well-nourished, no acute distress Head: Atraumatic and normocephalic Eyes: Pupils are equal reactive, extraocular motions intact, conjunctiva clear ENT: External nose and ears are normal, posterior pharynx without erythema or exudate Neck: No midline cervical tenderness, full spontaneous range of motion the neck, trachea midline, no adenopathy Heart: Regular rate and rhythm no murmurs or thrills Lungs: Clear to auscultation bilaterally without wheezes or crackles Abdomen: Soft, nontender, nondistended with active bowel sounds Musculoskeletal: No tenderness, deformity, or edema Neurologic: Awake, alert, and oriented x3, no gross focal neurologic deficits, cranial nerves intact as tested. Resting tremor on the last Psych: Mood and affect are appropriate Skin: No rashes Const: Vital Signs, click to edit/add: Vital Signs - 24 hr 10/12/23 17:57 10/12/23 18:45 10/12/23 19:00 Temperature 97.1 F L Pulse Rate [Pulse Oximeter] 60 63 61 Respiratory Rate 16 16 14 Blood Pressure [Ri ght Upper Arm] 209/98 H 185/154 H 195/111 H Pulse Oximetry 97 94 95 Oxygen Delivery Me thod Room Air Room Air Room Air Course Course ED Course: Reviewed most recent primary care note from August 25 which was follow-up for hypertension and Parkinson's disease, at that time blood pressure was well controlled, at that time it sounds like there were some concerned about his memory as he did not remember recent clinic or emergency department visits. At that time was on atenolol lisinopril and was mildly bradycardic but otherwise blood pressure was well managed. Patient presents today with elevated blood pressure as well as 2 episodes of vomiting. Slight frontal headache, no history of head injury. No focal neurologic deficits on exam, resting tremor which is chronic for the patient. Labs ordered along with Zofran. No abdominal tenderness. Reevaluation(s) Time of Reevaluation #1: 19:19 Reevaluation #1: EKG independently interpreted by me performed at 6:44 p.m. demonstrates sinus rhythm with occasional PVCs, rate 63, nonspecific ST changes with no acute ischemic changes, normal intervals, normal axis, QTC 423. No prior for comparison. Labs ordered and independently interpreted by me with mild anemia which is likely chronic for the patient, normal basic metabolic panel, normal emphatic panel, urinalysis negative for acute infection, negative troponin. Patient is stable for discharge with outpatient follow-up, should continue his regular medications and also be started on Zofran to help with nausea vomiting. Blood pressure improved slightly while in the department. Vital Signs Vital signs: Initial Vital Signs Temperature 97.1 F L 10/12/23 17:57 Temperature Source Temporal Artery Scan 10/12/23 17:57 Pulse Rate 60 10/12/23 17:57 Respiratory Rate 16 10/12/23 17:57 Blood Pressure 209/98 H 10/12/23 17:57 Blood Pressure Mean 135 H 10/12/23 17:57 Pulse Oximetry 97 10/12/23 17:57 Oxygen Delivery Method Room Air 10/12/23 17:57 Vital Signs Temperature 97.1 F L 10/12/23 17:57 Pulse Rate 60 10/12/23 17:57 Respiratory Rate 16 10/12/23 17:57 Blood Pressure 209/98 H 10/12/23 17:57 Pulse Oximetry 97 10/12/23 17:57 Oxygen Delivery Method Room Air 10/12/23 17:57 Temperature 97.1 F L 10/12/23 17:57 Pulse Rate 61 10/12/23 19:00 Respiratory Rate 14 10/12/23 19:00 Blood Pressure 195/111 H 10/12/23 19:00 Pulse Oximetry 95 10/12/23 19:00 Oxygen Delivery Method Room Air 10/12/23 19:00 Medications Administered Medications: Discontinued Medications Generic Name Dose Route Start Last Admin Trade Name Dionna PRN Reason Stop Dose Admin Ondansetron HCl 4 mg 10/12/23 18:12 10/12/23 18:39 Ondansetron 2 Mg/Ml Inj IVP 10/12/23 18:13 4 mg ONCE ONE Administration MDM - Nausea/Vomiting/Diarrhea Lab Data Labs: Lab Results 10/12/23 10/12/23 10/12/23 Range/Units 18:13 18:25 18:35 WBC 10.36 (4.50-11.00) K/uL RBC 5.26 (4.30-5.90) m/uL Hgb 12.8 L (13.5-17.5) gm/dL Hct 41.8 (37.0-53.0) % MCV 80 (80-100) fL MCH 24 L (26-34) pg MCHC 31 L (32-36) gm/dL RDW Coeff of Brianna 18.8 H (11.5-15.5) % Plt Count 235 (140-440) K/uL Neut % (Auto) 85.6 H (42.0-72.0) % Lymph % (Auto) 8.4 L (20-44) % Madison % (Auto) 5.3 (0.0-11.0) % Eos % (Auto) 0.4 (0.0-7.0) % Baso % (Auto) 0.2 (0.0-3.0) % Neut # (Auto) 8.90 H (1.7-7.0) K/uL Lymph # (Auto) 0.90 (0.90-2.90) K/uL Madison # (Auto) 0.50 (0.00-0.90) K/UL Eos # (Auto) 0.04 (0.00-0.50) K/uL Baso # (Auto) 0.02 (0.00-0.30) K/uL Abs Immat Gran (auto) 0.01 (0.00-0.30) K/uL Imm/Tot Granulo (auto) 0.1 % Sodium 139 (135-149) mmol/L Potassium 4.0 (3.6-5.1) mmol/L Chloride 101 (96-114) mmol/L Carbon Dioxide 27 (20-32) mmol/L Anion Gap 11 (7-15) mEq/L BUN 16 (7-30) mg/dL Creatinine 0.8 (0.5-1.5) mg/dL Estimated Creat Clear 54.15 Estimated GFR 88 ml/min Glucose 138 H (60-115) mg/dL Calcium 10.4 (8.4-10.6) mg/dL Magnesium 2.0 (1.5-2.6) mg/dL Total Bilirubin 0.7 (0.1-1.5) mg/dL Direct Bilirubin 0.3 (0.0-0.5) mg/dL AST 19 (12-35) U/L ALT 7 (4-50) U/L Alkaline Phosphatase 77 (40-150) U/L Total Protein 7.9 (6.0-8.3) g/dL Albumin 4.9 (3.3-5.0) g/dL Lipase 68 (23-300) U/L Urine Color Yellow (Yellow) Urine Appearance Clear (Clear) Urine pH 8.5 (5.0-8.5) Ur Specific L[place]y 1.015 (1.000-1.030) Urine Protein 1+ A (Negative) Urine Glucose (UA) Negative (Negative) Urine Ketones Negative (Negative) Urine Blood Trace-intact A (Negative) Urine Nitrite Negative (Negative) Urine Bilirubin Negative (Negative) Urine Urobilinogen 0.2 (0.2-1.0) Ur Leukocyte Esterase Negative (Negative) POC Troponin I 0.01 (0.01-0.04) ng/ml Discharge Plan Discharge Clinical Impression: Nausea & vomiting, Essential (primary) hypertension Patient Disposition: Home, Self-Care Condition: Stable Instructions: Acute Nausea and Vomiting (ED), Hypertension (ED) Additional Instructions: Continue your current medications. Take Zofran as needed for nausea and vomiting. Liquid diet for 24 hours. Activity Level: Activity as Tolerated Discharge Diet: Full Liquid Prescriptions: No Action carbidopa-levodopa 25-100 mg tablet 3 tab PO Q8H amantadine HCl 100 mg capsule 100 mg PO DAILY rivastigmine tartrate 1.5 mg capsule 1.5 mg PO BID atenolol 25 mg tablet 25 mg PO BID Qty: 180 0RF lisinopril 20 mg tablet 20 mg PO DAILY Qty: 90 2RF tamsulosin 0.4 mg capsule 0.4 mg PO DAILY Qty: 90 0RF Follow Up/Referrals: Nancy Chiu MD [Staff Physician] - Stand Alone Forms: Delivery Club Info Instructions
[2023-10-12] MEDS: ONDANSETRON 2 MG/ML inj 4 MG IVP (18:39)
[2023-10-12 18:42] LABS: Basophils Absolute Auto 0.02 K/uL (0.00-0.30); Basophils Percent Auto 0.2 % (0.0-3.0); Eosinophils Absolute Auto 0.04 K/uL (0.00-0.50); Eosinophils Percent Auto 0.4 % (0.0-7.0); Hematocrit 41.8 % (37.0-53.0); Hemoglobin* 12.8 gm/dL (13.5-17.5); Immature Granulocytes Abs Auto 0.01 K/uL (0.00-0.30); Immature Granulocytes Pct Auto 0.1 %; Lymphocytes Percent Auto 8.4 % (20-44); Mean Corpuscular HGB Conc 31 gm/dL (32-36); Mean Corpuscular Hemoglobin 24 pg (26-34); Mean Corpuscular Volume 80 fL (80-100); Monocytes Percent Auto 5.3 % (0.0-11.0); Neutrophils Percent Auto 85.6 % (42.0-72.0); Platelet Count* 235 K/uL (140-440); RDW Coefficient of Variation % 18.8 % (11.5-15.5); Red Blood Count 5.26 m/uL (4.30-5.90); White Blood Count* 10.36 K/uL (4.50-11.00)
[2023-10-12 18:45] VITALS: BP 185/154; PULSE 63; RESP 16; O2SAT 94
[2023-10-12 18:46] LABS: Troponin, Point-of-Care* 0.01 ng/ml (0.01-0.04)
[2023-10-12 18:46] LABS: Slide Review Reflex No
--- OUTSIDE RECORDS SUMMARY | 2023-10-12 18:46 | XMS_ITS | Encounter Summary ---
Author Organization [place] Address [facility] [place] [address] Care Team Providers Care Retail Assistant Manager Name Role Phone Li Meyer CARLOS VIDEO CONTROL OPERATOR Unavailable Un available Martha Ramires MD Primary Care Prov ider Martha Ramires MD Unavailable + Martha Ramires MD Unavailable + [facility]- Primary Care Provider [facility]- Primary Care Provider Encounter Details Date Type Department Care Team (Late st Contact Info) Description 10/10/[address] [phone] Lida Chao MD XXX [place] [address] ER ENCOUNTER (Primary Dx) Social History Tobacco Use Types Packs/Day Years Used Date Smoking Tobacco: Former Cigarettes 2 5 0 01/05/1957 - 01/05/1962 Smokeless Tobacco: Never Comments:1961 Alcohol Use Standard Drinks/Week Comments No 0 (1 standard drink = 0.6 oz pur e alcohol) 6 months sober on 04/29/04 Sex and Gender Information Value Date Recorded Sex Assigned at Not on file Gender Identity Not on file Sexual Orientation Not on file documented as of this encounter Progress Notes * 10/10/2002 11:59 PM [id number] 00:00 Emergency Department Encounter-CAITLYN RAZO) [Entered: 00:00 Band Saw Marker ([facility])] : 40 CHIEF COMPLAINT: Eye pain. [...] pain. _ CAITLYN VÁZQUEZ MD MT: Document: [id number] [place], [place] Name: AMRIK YOUNG MERGENCY ROOM ENCOUNTER Page 2 of 1 LCN: ER DSC: 10/10/2002 [place], [place] Name: AMRIK YOUNG MR#: : Admit Date: 3200-19-49-35 1940 10/10/2002 Doctor: CAITLYN VÁZQUEZ MD EMERGENCY ROOM ENCOUNTER Page 1 of 1 Electronically filed by Danyelle Gomez 2:43 PM documented in this encounter Plan of Treatment Not on file documented as of this encounter Visit Diagnoses Diagnosis ER ENCOUNTER- Primary documented in this encounter Care Teams Retail Assistant Manager Relationship Specialty [place] [address] [place] [address] PCP - General Family Practice 04/17/16 02/02/19 Martha Ramires MD PRIMARY ENT [address] [facility] [address] [place] [address] PCP - Assigned PCP 05/22/15 06/17/18 [facility]- [address] [address] PCP - General 02/03/19 04/09/19 [facility]- [address] [address] PCP - General 04/10/19 Li Meyer APRN VIDEO CONTROL OPERATOR Nurse Practitioner Nurse Practitioner 02/17/14 08/09/23 Martha Ramires MD PRIMARY ENT [address] [facility] [address] [place] [address] Assigned PCP 05/22/15 11/26/20 documented as of this encounter
--- OUTSIDE RECORDS SUMMARY | 2023-10-12 18:46 | XMS_ITS | Encounter Summary ---
Author Organization [place] Address [facility] [place] [address] Care Team Providers Care Office Correspondent Name Role Phone Li Meyer CARLOS FEATHER MAKER Unavailable Un available Martha Ramires MD Primary Care Prov ider Martha Ramires MD Unavailable + Martha Ramires MD Unavailable + [facility]- Primary Care Provider [facility]- Primary Care Provider Reason for Visit * Reason Comments Medication Refill ibuprofen (ADVIL/MOT RIN) 600 MG tablet Encounter Details Date Type Department Care Team (Late st Contact Info) Description 08/21/2017 Refill [facility] [id number] [place] [phone] Martha Ramires MD PRIMARY ENT [address] [facility] [address] [place] [address] Medication Refill (ibuprofen (ADVIL/MOTRIN) 600 MG [...] routed this conversation to Chevy Mark MD Me ?? 1:51 PM Note ? Failing below. [...] encounter documented in this encounter Care Teams Office Correspondent Relationship Specialty Start [place] [address] [place] [address] PCP - General Family Practice 04/17/16 02/02/19 Martha Ramires MD PRIMARY ENT [address] [facility] [address] [place] [address] PCP - Assigned PCP 05/22/15 06/17/18 [facility]- [address], [place] [address] PCP - General 02/03/19 04/09/19 [facility]- [address] [place] [address] PCP - General 04/10/19 Li Meyer APRN [facility] Nurse Practitioner Nurse Practitioner 02/17/14 08/09/23 Martha Ramires MD PRIMARY ENT [address] [facility] [address] [place] [address] Assigned PCP 05/22/15 11/26/20 documented as of this encounter
--- OUTSIDE RECORDS SUMMARY | 2023-10-12 18:46 | XMS_ITS | Referral Summary ---
Author Organization [place] Address [facility] [place] [address] Care Team Providers Care Mgmt Analyst Name Role Phone [facility]- Primary Care Provider Allergies Active [...] as needed (Takes daily between and ) Active ferrous gluconate (FERGON) 324 (38 Fe) [...] of tremor HTN, goal below 140/90 07/06/2013 S/P colonoscopy 01/22/2013 Overview: Repeat in 5 [...] to review Chem Dep in recovery 10/30/2002 Resolved Problems Problem Noted Date Diagnosed Date Resolved Date Advanced directives, counseling/discussion 01/28/2013 09/30/2023 Overview: Advance Care Planning: Receipt of ACP [...] Advance Care Planning: Initial facilitation introduction: Homero Young presented for initial session regarding ACP at a group session. He was accompanied by . [employer] information provided and resources reviewed. He currently wishes to complete an ACP document. He currently has the following questions or concerns about Advance Care Planning: none. Confirmed/documented designated decision maker(s). See permanent comments section of demographics in clinical tab. 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 Height 172.7 cm (5' 8) 04/10/2019 8:50 AM [employer] Body Mass Index 27.37 04/10/2019 8:50 AM [employer] M[employer] CREW[employer] Plan of Treatment Not on file Procedures Procedure Name Priority Date/Time Associated Diagnosis Comments CBC WITH PLATELETS & DIFFERENTIAL STAT 08/12/2020 5:29 PM CDT COMPREHENSIVE METABOLIC PANEL STAT 08/12/2020 5:29 PM CDT COLONOSCOPY Routine 04/10/2019 9:06 AM [employer] CREW[employer] OCCULT BLOOD STOOL STAT 02/03/2019 7: 07 PM CDT LIPID REFLEX TO DIRECT LDL PANEL Routine 02/18/2014 9:10 AM [employer] CREW[employer] HTN, goal below 140/90 from Last 3 Months or Most Recently Relevant to Health Maintenance Results * (ABNORMAL) CBC with platelets differential (08/12/2020 5:29 PM CDT) WBC 7.7 4.0 - 11.0 10e9/L 08/12/2020 6:03 PM CDT [facility] RBC Count 4.64 4.4 - 5.9 10e12/L 08/12/2020 6:03 PM CDT [facility] Hemoglobin 13.1(L) 13.3 - 17.7 g/dL 08/12/2020 6:03 PM CDT [facility] Hematocrit 40.8 40.0 - 53.0 % 08/12/2020 6:03 PM T [facility] MCV 88 78 - 100 fl 08/12/2020 6:03 PM CDT [facility] MCH 28.2 26.5 - 33.0 pg 08/12/2020 6:03 PM [facility] MCHC 32.1 31.5 - 36.5 g/dL 08/12/2020 6:03 PM [facility] RDW 14.1 10.0 - 15.0 % 08/12/2020 6:03 PM [facility] Platelet Count 263 150 - 450 10e9/L 08/12/2020 6:03 PM [facility] Diff Method Automated Method 08/12/2020 6:03 PM [facility] % Neutrophils 67.5 % 08/12/2020 6:03 PM [facility] % Lymphocytes 18.3 % 08/12/2020 6:03 PM [facility] % Monocytes 9.9 % 08/12/2020 6:03 PM [facility] % Eosinophils 3.0 % 08/12/2020 6:03 PM [facility] % Basophils 0.9 % 08/12/2020 6:03 PM [facility] % Immature Granulocytes 0.4 % 08/12/2020 6:03 PM [facility] Nucleated RBCs 0 0 /100 08/12/2020 6:03 PM [facility] Absolute Neutrophil 5.2 1.6 - 8.3 10e9/L 08/12/2020 6:03 PM [facility] Absolute Lymphocytes 1.4 0.8 - 5.3 10e9/L 08/12/2020 6:03 PM [facility] Absolute Monocytes 0.8 0.0 - 1.3 10e9/L 08/12/2020 6:03 PM [facility] Absolute Eosinophils 0.2 0.0 - 0.7 10e9/L 08/12/2020 6:03 PM [facility] Absolute Basophils 0.1 0.0 - 0.2 10e9/L 08/12/2020 6:03 PM [facility] Abs Immature Granulocytes 0.0 0 - 0.4 10e9/L 08/12/2020 6:03 PM [facility] Absolute Nucleated RBC 0.0 08/12/2020 6:03 PM [facility] Blood 08/12/2020 5:29 PM CDT 08/12/2020 6:00 PM CDT Tomás Lee PA-C LAB - BLOOD ORDERABLES [facility] [address] [place] [id number], [facility] [phone] * (ABNORMAL) Comprehensive metabolic panel (08/12/2020 5:29 PM CDT) Sodium 143 133 - 144 mmol/L 08/12/2020 6:12 PM CDT [facility] Potassium 4.1 3.4 - 5.3 mmol/L 08/12/2020 6:12 PM T [facility] Chloride 110(H) 94 - 109 mmol/L 08/12/2020 6:12 PM T [facility] Carbon Dioxide 28 20 - 32 mmol/L 08/12/2020 6:20 PM T [facility] Anion Gap 5 3 - 14 mmol/L 08/12/2020 6:20 PM T [facility] Glucose 95 70 - 99 mg/dL 08/12/2020 6:20 PM [facility] Urea Nitrogen 20 7 - 30 mg/dL 08/12/2020 6:20 PM [facility] Creatinine 1.03 0.66 - 1.25 mg/dL 08/12/2020 6:20 PM [facility] GFR Estimate 68 >60 mL/min/{1. 73_m2} 08/12/2020 6:20 PM [facility] Comment: Non GFR Calc Starting 04/01/2018, serum creatinine based estimated GFR (eGFR) will be calculated using the Chronic Kidney Disease Epidemiology Collaboration (CKD-EPI) equation. GFR Estimate If Black 79 >60 mL/min/{1. 73_m2} 08/12/2020 6:20 PM T [facility] Comment: GFR Calc Starting 04/01/2018, serum creatinine based estimated GFR (eGFR) will be calculated using the Chronic Kidney Disease Epidemiology Collaboration (CKD-EPI) equation. Calcium 8.9 8.5 - 10.1 mg/dL 08/12/2020 6:20 PM CDT [facility] Bilirubin Total 0.5 0.2 - 1.3 mg/dL 08/12/2020 6:21 PM CDT [facility] Albumin 3.4 3.4 - 5.0 g/dL 08/12/2020 6:21 PM CDT [facility] Protein Total 7.0 6.8 - 8.8 g/dL 08/12/2020 6:21 PM CDT [facility] Alkaline Phosphatase 66 40 - 150 U/L 08/12/2020 6:21 PM CDT [facility] ALT 9 0 - 70 U/L 08/12/2020 6:21 PM CDT [facility] AST 11 0 - 45 U/L 08/12/2020 6:21 PM CDT [facility] Blood 08/12/2020 5:29 PM CDT 08/12/2020 6:00 PM CDT Tomás Lee PA-C LAB - BLOOD ORDERABLES [facility] [address] [place] [address], [facility] [phone] [facility] [address] [place] [address], [facility] [phone] * COLONOSCOPY (04/10/2019 9:06 AM [employer]GE[employer]) COLONOSCOPY [facility] Patient Name: Homero Young ? Procedure Date: 04/10/2019 9:06 AM ? Date of : 1940 ?Admit Type: Outpatient Age: 78 ? Gender: Male Attending MD: Homero Eric MD ?? Total Sedation Time: 14_minutes continuous bedside 1:1 Instrument Name: 217 - Pediatric Colonoscope Procedure: ?Colonoscopy Indications: ?High risk colon cancer surveillance: Personal ?history of colonic polyps Providers: ?Homero Eric MD (Doctor) Referring MD: ? Martha Ramires (Referring MD) Medicines: ?Midazolam 1 mg IV, Fentanyl 50 micrograms IV Complications: ?No immediate complications. Procedure: ?Pre-Anesthesia Assessment: ?- Prior to the procedure, a History and Physical ?was performed, and patient medications and ?allergies were reviewed. The patient is competent. ?The risks and benefits of the procedure and the ?sedation options and risks were discussed with the ?patient. All questions were answered and informed ?consent was obtained. Patient identification and ?proposed procedure were verified by the physician ?in the procedure room. Mental Status Examination: ?alert and oriented. Airway Examination: normal ?oropharyngeal airway and neck mobility. Respiratory ?Examination: clear to auscultation. CV Examination: ?normal. Prophylactic Antibiotics: The patient does ?not require prophylactic antibiotics. Prior ?Anticoagulants: The patient has taken no previous ?anticoagulant or antiplatelet agents. ASA Grade ?Assessment: II - A patient with mild systemic ?disease. After reviewing the risks and benefits, ?the patient was deemed in satisfactory condition to ?undergo the procedure. The anesthesia plan was to ?use moderate sedation / analgesia (conscious ?sedation). Immediately prior to administration of ?medications, the patient was re-assessed for ?adequacy to receive sedatives. The heart rate, ?respiratory rate, oxygen saturations, blood ?pressure, adequacy of pulmonary ventilation, and ?response to care were monitored throughout the ?procedure. The physical status of the patient was ?re-assessed after the procedure. ?After obtaining informed consent, the colonoscope ?was passed under direct vision. Throughout the ?procedure, the patient's blood pressure, pulse, and ?oxygen saturations were monitored continuously. The ?Olympus Pediatric Colonoscope, Model # [id number]-H190DL, ?[place] # 217, SN # [id number] was introduced through ?the anus and advanced to the cecum, identified by ?appendiceal orifice and ileocecal valve. The ?colonoscopy was performed without difficulty. The ?patient tolerated the procedure well. The quality ?of the bowel preparation was good. ? Findings: ? The perianal and digital rectal examinations were normal. ? Multiple small and large-mouthed diverticula were found in the entire ? colon. ? The exam was otherwise without abnormality on direct and retroflexion ? views. ? Impression: ? - Diverticulosis in the entire examined colon. ?- The examination was otherwise normal on direct ?and retroflexion views. ?- No specimens collected. Recommendation: ? - Use sugar-free Metamucil one teaspoon PO BID. ? Procedure Code(s): ? --- Professional --- ? G0105, Colorectal cancer screening; colonoscopy on individual at high ? risk Diagnosis Code(s): ? --- Professional --- ? Z86.010, Personal history of colonic polyps CPT copyright 2018 [employer]. All rights reserved. The codes documented in this report are preliminary and upon substation technician review may be revised to meet current compliance requirements. Electronically signed by Homero Eric MD __ Homero Eric MD 04/10/2019 9:34:07 AM I was physically present for the entire viewing portion of the exam. Homero Eric MD Number of Addenda: 0 Note Initiated On: 04/10/2019 9:06 AM MRN: ?[id number] Procedure Date: ? 04/10/2019 9:06:30 AM Scope Withdrawal Time: 0 hours 6 minutes 9 seconds Total Procedure Duration: 0 hours 12 minutes 0 seconds Estimated Blood Loss: ? Scope In: 9:11:12 AM Scope Out: 9:23:12 AM RADIOLOGY RESULTS 04/10/2019 9:06 AM [employer] Martha Ramires MD PROCEDURES RADIOLOGY RESULTS * (ABNORMAL) Occult blood stool (02/03/2019 7:07 PM CDT) Occult Blood Positive(A ) NEG^Negati ve 02/03/2019 7:26 PM CDT [facility] Comment: Called to ALYCIA PUCKETT (ERB) 02.03.19 AT 1926 BY ADALBERTO Stool specimen (specimen) 02/03/2019 7:07 PM CDT 02/03/2019 7:16 PM CDT Hamzah Quesada PA-C LAB - STOOLS ORDERABLES Performing Organization Address City/[facility]/ZIP Co de Phone Number [facility] [address] [place] [address], [facility] [phone] * Lipid panel reflex to direct LDL (02/18/2014 9:10 AM [employer]GE[employer]) Cholesterol 181 <200 mg/dL [facility] Comment: LDL Cholesterol is the primary guide to therapy. The NCEP recommends further evaluation of: patients with cholesterol greater than 200 mg/dL if additional risk factors are present, cholesterol greater than 240 mg/dL, triglycerides greater than 150 mg/dL, or HDL less than 40 mg/dL. Triglycerides 134 0 - 150 mg/dL [facility] Comment:Fasting specimen HDL Cholesterol 52 >40 mg/dL [facility] LDL Cholesterol Calculated 102 0 - 129 mg/dL [facility] Comment: LDL Cholesterol is the primary guide to therapy: LDL-cholesterol goal in high risk patients is <100 mg/dL and in very high risk patients is <70 mg/dL. VLDL-Cholesterol 27 0 - 30 mg/dL [facility] Cholesterol/HDL Ratio 3.5 0.0 - 5.0 [facility] Blood specimen (specimen) 02/18/2014 9:10 AM [employer]WMAN 02/18/2014 3:05 PM [employer]GE[employer] CREWMAN Li Meyer ELECTRONIC FUNDS TRANSFER COORDINATOR FOOD AND BEVERAGE ASSISTANT LAB - BLOOD ORDERABLES [facility] [address] [place] [address] from Last 3 Months or Most Recently Relevant to Health Maintenance Advance Directives For more information, please contact: [phone] Documents on File Type Date Recorded Patient Felt Pad Cutter Expl anation Advance Directives and Living Will 07/07/2014 Health Care Directiv e 07/07/14 * Full Code (Latest Code Status on File) Date Activated Date Inactivated Comments 02/04/2019 1:19 PM 04/10/2019 8:27 AM Question Answer Comments Code status determined by: Discussion with maria victoria nt/legal decision maker * Full Code Date Activated Date Inactivated Comments 02/03/2019 10:35 PM 02/04/2019 1:19 PM Question Answer Comments Code status determined by: Discussion with maria victoria nt/legal decision maker Care Teams Mgmt Analyst Relationship Specialty Start Date End Date [facility] [address] [place] [address] PCP - General 04/10/19
--- OUTSIDE RECORDS SUMMARY | 2023-10-12 18:46 | XMS_ITS | Encounter Summary ---
Author Organization [place] Address [facility] [place] [address] Care Team Providers Care Supervisor Paste Mixing Name Role Phone Li Meyer CARLOS ANGLESMITH HELPER Unavailable Un available Martha Ramires MD Primary Care Prov ider Martha Ramires MD Unavailable + Martha Ramires MD Unavailable + [facility]- Primary Care Provider [facility]- Primary Care Provider Reason for Visit * Reason Onset Date Comments Medication Refill 12/12/2017 ibuprofen (ADV IL/MOTRIN) 600 MG tablet Encounter Details Date Type Department Care Team (Late st Contact Info) Description 12/12/[address] [phone] Martha Ramires MD PRIMARY ENT [address] [facility] [address] [place] [address] Medication [...] See Patient Instructions ?? Martha Ramires MD [facility] Instructions Return in about 6 months (around [...] HCT 42.3 PLT 250 For G[facility] ONLY: [id number] = WBC, JDUD879 = RBC Passed - Normal serum creatinine on file in past 12 months Recent Labs Lab Test 11/23/17 1125 CR 0.88 documented in this encounter Plan of Treatment Not on file documented as of this encounter Visit Diagnoses Diagnosis Osteoarthritis of multiple joints, unspecified osteoarthritis type documented in this encounter Care Teams Supervisor Paste Mixing Relationship Specialty [place] [address] [place] [address] PCP - General Family Practice 04/17/16 02/02/19 Martha Ramires MD PRIMARY ENT [address] [facility] [address] [facility] [address] [place] [address] PCP - Assigned PCP 05/22/15 06/17/18 [facility] [address] [place] [address] PCP - General 02/03/19 04/09/19 [facility] [address] [place] [address] PCP - General 04/10/19 Li Meyer APRN ANGLESMITH HELPER Nurse Practitioner Nurse Practitioner 02/17/14 08/09/23 Martha Ramires MD PRIMARY ENT [address] [facility] [address] [facility] [address] [place] [address] Assigned PCP 05/22/15 11/26/20 documented as of this encounter
--- OUTSIDE RECORDS SUMMARY | 2023-10-12 18:46 | XMS_ITS | Encounter Summary ---
Author Organization [place] Address [facility] [place] [address] Care Team Providers Care Fast Brim Pouncer Name Role Phone Li Meyer CARLOS L D RN Unavailable Un available Martha Ramires MD Primary Care Prov ider Martha Ramires MD Unavailable + Martha Ramires MD Unavailable + [facility]- Primary Care Provider [facility]- Primary Care Provider Encounter Details Date Type Department Care Team (Late st Contact Info) Description 10/27/[address] [phone] Ibis Chao MD [place] [address] Social History Tobacco Use Types Packs/Day Years [...] CDTADMISSION HISTORY & PHYSICAL AMRIK YOUNG [address] [facility] IBIS CHAO MD 10/27/03 CC: Amrik Young [...] his were home wor 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 They had unloaded some flagstone from [...] of patient's family history indicates: Adopted: Yes Respirmichelle blas Son Comment: asthma Social History Marital Status: Spouse Name: Years of Education: Number of c sacha: Social History Main Topics Tobacco Use: Quit [...] dehydration and physical e xertion, cardiac (R/O PR and tele for dysrhythmias), neurlologic (ischemic or toxin-chronic ETOH) 2. ETOH abuse/suspect dependence - opportunity for intervention, is supportive 3. Hypertension - currently sub-optimal control and labile (was in range on 10/14/03 in clinic) 4. Contusions and fac ial laceration PLAN: 1. R/O PR, Cardiology Consult, Neurology Consult, Psychology/Psychiatry and Chem Dep 2. ETOH withdrawal protocol, hydration, Chem Dep, Psych 3. May benefit from B-mague 4 . Local cares Ibis Chao MD documented in this encounter Plan of Treatment Not on file documented as of this encounter Visit Diagnoses Not on filedocumented in this encounter Care Teams Fast Brim Pouncer Relationship Specialty [place] [address] [place] [address] PCP - General Family Practice 04/17/16 02/02/19 Martha Ramires MD PRIMARY ENT [address] [facility] [address] [place], [place] [id number] PCP - Assigned PCP 05/22/15 06/17/18 [facility]- [address] [place] [address] PCP - General 02/03/19 04/09/19 [facility]- [address] [place] [address] PCP - General 04/10/19 Li Meyer APRN L D RN Nurse Practitioner Nurse Practitioner 02/17/14 08/09/23 Martha Ramires MD PRIMARY ENT [address] [facility] [address] [place] [address] Assigned PCP 05/22/15 11/26/20 documented as of this encounter
--- OUTSIDE RECORDS SUMMARY | 2023-10-12 18:46 | XMS_ITS | Continuity of Care Document ---
Author Organization [facility] Address [address] [address] [place] [address] Phone Care Team Providers Care Wellness Program Coordinator Name Role Phone Alvarez Sanchez MD Unavailable Unavailable Medications Medication Instructions Dosage Effective Dates (start - stop) Status Comments MiralaxBisacodylMagCit Colon Prep Use as directed - No Longer Active Procedures Procedure Date Init Hosp-da E&m Mod Severity 9 Advance Directives Directive Yes / No Effective Date File Name No Information Encounters Encounter Description Practice Location Reason(s) For Visit Diagnoses Date Provider Providers Copied on Encounter [facility], [address] [address], [place], [place], [id number], tel:[phone] [facility] No Information Laura Pino. [address] [place] [address], [id number], [place]. tel:[phone] Init Hosp-da E&m Mod Severity [facility], [address] [address], [place], [place], [id number], [place] tel:[phone] [facility] No Information Jerri Weber. [address] [place] [address], [id number], [place]. tel:[phone] Referring Provider: Tia Guthrie MD, [address] [place] [address], [id number]. tel:[phone] Family History Family Member Type Diagnosis Age At Onset No Information Payers Payer name Insurance type Covered constitution party ID Authoriza timary(s) [employer] Gold Choice 16 [id number] Social History Type Description Quantity Date Captured Comments Sex Male Smoking Status No Information Chief Complaint And Reason For Visit No Information Reason For Referral Reason For Referral No Information History Of Present Illness Encounter Date Complaint History Of Prese nt Illness No Information Functional Status Date Functional Assessmen t No Information Instructions Date Instruction Additional Infor mation No Information Assessments Type Assessment Date No Information Patient Care Teams Name Effective Dates (start - stop) Status Members No Information
--- OUTSIDE RECORDS SUMMARY | 2023-10-12 18:46 | XMS_ITS | Clinical Summary ---
Author Organization [place] Address [facility] [place] [address] Care Team Providers Care Career Services Representative Name Role Phone [facility]- Primary Care Provider Allergies Active Allergy Reactions [...] Maternal Grandfather Maternal Grandmother Mother Other Other Homero is Adopted Paternal Grandfather Paternal Grandmother Son [...] 81.6 kg (180 lb) 04/10/2019 8:50 AM MED AIDE Height 172.7 cm (5' 8) 04/10/2019 8:50 AM MED AIDE Body Mass Index 27.37 04/10/2019 8:50 AM MED AIDE Plan of Treatment Health Maintenance Due Date [...] Vaccine ( season) 2022 01/26/2021, 06/25/2020, 06/04/2020 PHQ-2 (once per calendar year) 2023 09/27/2016, 04/17/2016, 01/05/2015 INFLUENZA VACCINE (Season Ended) 2023 01/26/2021, 02/09/2019, 02/04/2018, Additional history exists COLONOSCOPY 04/10/2024 04/10/2019, 03/16, 01/21/2013, Additional history [...] on patient's age to complete this topic Procedures Procedure Name Priority Date/Time Associated Diagnosis Comments CBC WITH PLATELETS & DIFFERENTIAL STAT 08/12/2020 5:29 PM CDT COMPREHENSIVE METABOLIC PANEL STAT 08/12/2020 5:29 PM CDT COLONOSCOPY Routine 04/10/2019 9:06 AM MED AIDE OCCULT BLOOD STOOL STAT 02/03/2019 7: 07 PM CDT LIPID REFLEX TO DIRECT LDL PANEL Routine 02/18/2014 9:10 AM MED AIDE HTN, goal below 140/90 from Last 3 Months or Most Recently Relevant to Health Maintenance Results * (ABNORMAL) CBC with platelets differential (08/12/2020 5:29 PM CDT) WBC 7.7 4.0 - 11.0 10e9/L 08/12/2020 6:03 PM CDT [facility] RBC Count 4.64 4.4 - 5.9 10e12/L 08/12/2020 6:03 PM CDT [facility] Hemoglobin 13.1(L) 13.3 - 17.7 g/dL 08/12[facility]2020 [facility] Hematocrit 40.8 40.0 - 53.0 % 08/12/2020 6:03 PM [facility] MCV 88 78 - 100 fl 08/12/2020 6:03 PM [facility] MCH 28.2 26.5 - 33.0 pg 08/12/2020 6:03 PM [facility] MCHC 32.1 31.5 - 36.5 g/dL 08/12/2020 6:03 PM [facility] RDW 14.1 10.0 - 15.0 % 08/12/2020 6:03 PM [facility] Platelet Count 263 150 - 450 10e9/L 08/12/2020 6:03 PM [facility] Diff Method Automated Method 08/12/2020 6:03 PM [facility] % Neutrophils 67.5 % 08/12/2020 6:03 PM [facility] % Lymphocytes 18.3 % 08/12/2020 6:03 PM [facility] % Monocytes 9.9 % 08/12/2020 6:03 PM [facility] % Eosinophils 3.0 % 08/12/2020 6:03 PM [facility] % Basophils 0.9 % 08/12/2020 6:03 PM [facility] % Immature Granulocytes 0.4 % 08/12/2020 6:03 PM [facility] Nucleated RBCs 0 0 /100 08/12/2020 6:03 PM [facility] Absolute Neutrophil 5.2 1.6 - 8.3 10e9/L 08/12/2020 6:03 PM [facility] Absolute Lymphocytes 1.4 0.8 - 5.3 10e9/L 08/12/2020 6:03 PM [facility] Absolute Monocytes 0.8 0.0 - 1.3 10e9/L 08/12/2020 6:03 PM [facility] Absolute Eosinophils 0.2 0.0 - 0.7 10e9/L 08/12/2020 6:03 PM [facility] Absolute Basophils 0.1 0.0 - 0.2 10e9/L 08/12/2020 6:03 PM CDT [facility] Abs Immature Granulocytes 0.0 0 - 0.4 10e9/L 08/12/2020 6:03 PM CDT [facility] Absolute Nucleated RBC 0.0 08/12/2020 6:03 PM T [facility] Blood 08/12/2020 5:29 PM CDT 08/12/2020 6:00 PM CDT Tomás Lee PA-C LAB - BLOOD ORDERABLES [facility] [address] [place] [id number] [phone] * (ABNORMAL) Comprehensive metabolic panel (08/12/2020 5:29 PM CDT) Sodium 143 133 - 144 mmol/L 08/12/2020 6:12 PM [facility] Potassium 4.1 3.4 - 5.3 mmol/L 08/12/2020 6:12 PM [facility] Chloride 110(H) 94 - 109 mmol/L 08/12/2020 6:12 PM [facility] Carbon Dioxide 28 20 - 32 mmol/L 08/12/2020 6:20 PM [facility] Anion Gap 5 3 - 14 mmol/L 08/12/2020 6:20 PM [facility] Glucose 95 70 - 99 mg/dL 08/12/2020 6:20 PM [facility] Urea Nitrogen 20 7 - 30 mg/dL 08/12/2020 6:20 PM [facility] Creatinine 1.03 0.66 - 1.25 mg/dL 08/12/2020 6:20 PM [facility] GFR Estimate 68 >60 mL/min/{1. 73_m2} 08/12/2020 6:20 PM [facility] Comment: Non GFR Calc Starting 04/01/2018, serum creatinine based estimated GFR (eGFR) will be calculated using the Chronic Kidney Disease Epidemiology Collaboration (CKD-EPI) equation. GFR Estimate If Black 79 >60 mL/min/{1. 73_m2} 08/12/2020 6:20 PM CDT [facility] Comment: GFR Calc Starting 04/01/2018, serum creatinine based estimated GFR (eGFR) will be calculated using the Chronic Kidney Disease Epidemiology Collaboration (CKD-EPI) equation. Calcium 8.9 8.5 - 10.1 mg/dL 08/12/2020 6:20 PM CDT [facility] Bilirubin Total 0.5 0.2 - 1.3 mg/dL 08/12/2020 6:21 PM CDT [facility] Albumin 3.4 3.4 - 5.0 g/dL 08/12/2020 6:21 PM CDT [facility] Protein Total 7.0 6.8 - 8.8 g/dL 08/12/2020 6:21 PM T [facility] Alkaline Phosphatase 66 40 - 150 U/L 08/12/2020 6:21 PM CDT [facility] ALT 9 0 - 70 U/L 08/12/2020 6:21 PM T [facility] AST 11 0 - 45 U/L 08/12/2020 6:21 PM T [facility] Blood 08/12/2020 5:29 PM CDT 08/12/2020 6:00 PM CDT Tomás Lee PA-C LAB - BLOOD ORDERABLES [facility] [address] [address], [facility] [phone] [facility] [address] [place] [address], [facility] [phone] * COLONOSCOPY (04/10/2019 9:06 AM MED AIDE) COLONOSCOPY [facility] Patient Name: Homero Young ? Procedure Date: [...] # [id number], ?[place] # 217, SN # [id number] was introduced through ?the anus and advanced [...] history of colonic polyps CPT copyright 2018 [employer]. All rights reserved. The codes documented in this report are preliminary and upon refrigeration tech review may be revised to meet current compliance requirements. Electronically signed by Homero Eric MD __ Homero Eric MD 04/10/2019 9:34:07 AM I was physically present for the entire viewing portion of the exam. Homero Eric MD Number of Addenda: 0 Note Initiated On: 04/10/2019 9:06 AM MRN: ?[id number] Procedure Date: ? 04/10/2019 9:06:30 AM Scope Withdrawal Time: 0 hours 6 minutes 9 seconds Total Procedure Duration: 0 hours 12 minutes 0 seconds Estimated Blood Loss: ? Scope In: 9:11:12 AM Scope Out: 9:23:12 AM RADIOLOGY RESULTS 04/10/2019 9:06 AM MED AIDE Martha Ramires MD PROCEDURES RADIOLOGY RESULTS * (ABNORMAL) Occult blood stool (02/03/2019 7:07 PM CDT) Occult Blood Positive(A ) NEG^Negati ve 02/03/2019 7:26 PM CDT [facility] Comment: Called to ALYCIA PUCKETT (ERB) 02.03.19 AT 1926 BY ADALBERTO Stool specimen (specimen) 02/03/2019 7:07 PM CDT 02/03/2019 7:16 PM CDT Hamzah Quesada PA-C LAB - STOOLS ORDERABLES Performing Organization Address City/[facility]/ZIP Co de Phone Number [facility] [address] [place] [address], [facility] [phone] * Lipid panel reflex to direct LDL (02/18/2014 9:10 AM MED AIDE) Cholesterol 181 <200 mg/dL [facility] Comment: LDL Cholesterol is the primary guide to therapy. The NCEP recommends further evaluation of: patients with cholesterol greater than 200 mg/dL if additional risk factors are present, cholesterol greater than 240 mg/dL, triglycerides greater than 150 mg/dL, or HDL less than 40 mg/dL. Triglycerides 134 0 - 150 mg/dL [facility] Comment:Fasting specimen HDL Cholesterol 52 >40 mg/dL [facility] LDL Cholesterol Calculated 102 0 - 129 mg/dL [facility] Comment: LDL Cholesterol is the primary guide to therapy: LDL-cholesterol goal in high risk patients is <100 mg/dL and in very high risk patients is <70 mg/dL. VLDL-Cholesterol 27 0 - 30 mg/dL [facility] Cholesterol/HDL Ratio 3.5 0.0 - 5.0 [facility] Blood specimen (specimen) 02/18/2014 9:10 AM MED AIDE 02/18/2014 3:05 PM MED AIDE Li Meyer APRN WIG DRESSER LAB - BLOOD ORDERABLES [facility] [address] [place] [address] from Last 3 Months or Most Recently Relevant to Health Maintenance Insurance Payer Benefit Plan / Group Subscriber ID Effective Dates Phone Address Type [employer] [id number] 2012-Pres ent [address] [place] [address] [facility] MEDICARE ADVANTAGE [id number] 2020-Prese [address] [address] [place] [address] HMO Advance Directives For more information, please contact: [phone] Documents on File Type Date Recorded Patient Pathology Transcriptionist Expl anation Advance Directives and Living Will 07/07/2014 Health Care Directiv e 07/07/14 * Full Code (Latest Code Status on File) Date Activated Date Inactivated Comments 02/04/2019 1:19 PM 04/10/2019 8:27 AM Question Answer Comments Code status determined by: Discussion with tyee nt/legal decision maker * Full Code Date Activated Date Inactivated Comments 02/03/2019 10:35 PM 02/04/2019 1:19 PM Question Answer Comments Code status determined by: Discussion with patie nt/legal decision maker Care Teams Career Services Representative Relationship Specialty Start Date End Date [facility]- [address] [place] [address] PCP - General 04/10/19
--- OUTSIDE RECORDS SUMMARY | 2023-10-12 18:46 | XMS_ITS | Encounter Summary ---
Author Organization [place] Address [facility] [place] [address] Care Team Providers Care Submersible Pilot Name Role Phone Li Meyer CARLOS KILN PULLER Unavailable Un available Martha Ramires MD Primary Care Prov ider Martha Ramires MD Unavailable + Martha Ramires MD Unavailable + [facility]- Primary Care Provider [facility]- Primary Care Provider Reason for Visit * Reason Comments Medication Refill ibuprofen (ADVIL/MOT RIN) 600 MG tablet Encounter Details Date Type Department Care Team (Late st Contact Info) Description 09/12/2016 Refill [facility] [address] [place] [phone] Martha Ramires MD PRIMARY ENT [address] [facility] [address] [place] [address] Medication Refill [...] # refills: 1 Last Office Visit with [facility], P or [facility] prescribing provider: 04/17/2016 Next 5 appointments (look out 90 days) Sep 13, 2016 3:45 PM CDT SHORT with Martha Ramires MD [facility] [address] [place] [phone] Creatinine Date Value Ref Range Status 10/03/2015 0.95 0.66 - 1.25 mg/dL Final Lab Results Component Value Date AST 12 10/03/2015 Lab Results Component Value Date ALT 21 10/03/2015 BP Readings from Last 3 Encounters: 04/17/16 138/88 06/20/15 138/87 05/16/15 160/80 ELVIS Howell September 12, 2016 8:26 AM documented in this encounter Plan of Treatment Not on file documented as of this encounter Visit Diagnoses Diagnosis Sprain of left knee, unspecified ligament, initial encounter documented in this encounter Care Teams Submersible Pilot Relationship Specialty Start [place] [id number] [place] [address] PCP - General Family Practice 04/17/16 02/02/19 Martha Ramires MD [facility]IMARY E[facility] [address] [facility] [address] [place] [address] PCP - Assigned PCP 05/22/15 06/17/18 [facility]- [address] [place] [address] PCP - General 02/03/19 04/09/19 [facility]- [address] [place] [address] PCP - General 04/10/19 Li Meyer APRN [facility] Nurse Practitioner Nurse Practitioner 02/17/14 08/09/23 Martha Ramires MD PRIMARY ENT [address] [facility] [address] [place] [address] Assigned PCP 05/22/15 11/26/20 documented as of this encounter
--- OUTSIDE RECORDS SUMMARY | 2023-10-12 18:46 | XMS_ITS | Encounter Summary ---
Author Organization [place] Address [facility] [place] [address] Care Team Providers Care Byproducts Maker Name Role Phone Li Meyer CARLOS [employer] Unavailable Un available Martha Ramires MD Primary Care Prov ider Martha Ramires MD Unavailable + Martha Ramires MD Unavailable + [facility]- Primary Care Provider [facility]- Primary Care Provider Reason for Visit * Reason Comments Medication Refill Lisinopril, Tamsulos in Encounter Details Date Type Department Care Team (Late st Contact Info) Description 10/22/[address] [phone] Martha Ramires MD PRIMARY ENT [address] [facility] [address] [place] [address] Medication Refill (Lisinopril, Tamsulosin) Social History Tobacco [...] OV and labs ?? Prescription approved per [facility] Refill Protocol. For 30 day fill ?? Lisa Corbin RN * Telephone Encounter - Gavi Hicks [...] symptoms documented in this encounter Care Teams Byproducts Maker Relationship Specialty [place] [address] [place] [address] PCP - General Family Practice 04/17/16 02/02/19 Martha Ramires MD PRIMARY ENT [address] [facility] [address] [place], [place] [address] PCP - Assigned PCP 05/22/15 06/17/18 [facility]- [address] [place] [address] PCP - General 02/03/19 04/09/19 [facility]- [address] [place] [address] PCP - General 04/10/19 Li Meyer APRN [employer] Nurse Practitioner Nurse Practitioner 02/17/14 08/09/23 Martha Ramires MD PRIMARY ENT [address] [facility] [address] [place] [address] Assigned PCP 05/22/15 11/26/20 documented as of this encounter
[2023-10-12 19:00] VITALS: BP 195/111; PULSE 61; RESP 14; O2SAT 95
[2023-10-12 19:05] LABS: Albumin* 4.9 g/dL (3.3-5.0); Chloride* 101 mmol/L (96-114)
[2023-10-12 19:06] LABS: Sodium* 139 mmol/L (135-149)
[2023-10-12 19:08] LABS: Alkaline Phosphatase* 77 U/L (40-150); Anion Gap 11 mEq/L (7-15); Aspartate Amino Transferase* 19 U/L (12-35); Bilirubin Direct* 0.3 mg/dL (0.0-0.5); Bilirubin Total* 0.7 mg/dL (0.1-1.5); Blood Urea Nitrogen* 16 mg/dL (7-30); Carbon Dioxide* 27 mmol/L (20-32); Creatinine* 0.8 mg/dL (0.5-1.5); Est. Creatinine Clearance* 54.15; Estimated Glomerular Filt Rate 88 ml/min; Total Protein* 7.9 g/dL (6.0-8.3)
[2023-10-12 19:09] LABS: Alanine Aminotransferase* 7 U/L (4-50); Calcium* 10.4 mg/dL (8.4-10.6); Glucose* 138 mg/dL (60-115); Lipase* 68 U/L (23-300)
[2023-10-12 19:14] LABS: Appearance Urine Clear (Clear); Bilirubin Urine Negative (Negative); Blood Urine Trace-intact (Negative); Color Urine Yellow (Yellow); Glucose Urine Negative (Negative); Ketones Urine Negative (Negative); Leukocyte Esterase Urine Negative (Negative); Nitrite Urine Negative (Negative); Protein Urine 1+ (Negative); Specific Gravity Urine 1.015 (1.000-1.030); Urobilinogen Urine 0.2 (0.2-1.0); pH Urine 8.5 (5.0-8.5)
[2023-10-12 19:23] LABS: RBC Urine 0-2 (0-2); WBC Urine 0-2 (0-5)
== END 2023-10-12 19:33 | disposition home or self-care (01) ==
PROVIDERS: Emergency Provider Family Medicine; PCP Family Medicine
DX: R55 Syncope and collapse (principal)
CPT/HCPCS: 36415; 80048; 80076; 81001; 83690; 83735; 84484; 85025; 93005; 96374; 99284; J2405

== ENCOUNTER 2023-10-15 19:16 | Emergency (ER) | payer MEDICARE, SELFPAY ==
[2023-10-15] VITALS (7 sets, daily range): BP systolic 110–122; BP diastolic 68–70; PULSE 56–58; RESP 16; TEMP 35.9; O2SAT 87–99
--- NOTE | 2023-10-15 19:43 | ED.GENADULT ---
HPI - General Adult General Chief complaint: Hypotension Stated complaint: nausea, vomiting, hypertension Time Seen by Provider: 10/15/23 19:38 History of Present Illness HPI narrative: This 83-year-old male comes in with his son because of a syncopal episode that occurred just prior to arrival. He arrived by ambulance personnel who noted a low blood pressure when they 1st came to his home. The patient was having lunch sitting at a table an began to feel lightheaded and before long had leaned forward putting his head on the table. When ambulance arrived they laid him down flat and then he soon recovered. The patient has a history of Parkinson's and does take antihypertensive medicines. He is not on any new medication. He arrives here with a systolic blood pressure to 110. He states that he is feeling back to normal. Related Data Home Medications ?Medication ?Instructions ?Recorded ?Confirmed amantadine HCl 100 mg capsule 100 mg PO DAILY 05/23/23 10/15/23 carbidopa 25 mg-levodopa 100 mg 3 tab PO Q8H 05/23/23 10/15/23 tablet rivastigmine tartrate 1.5 mg 1.5 mg PO BID 05/23/23 10/15/23 capsule Previous Rx's ?Medication ?Instructions ?Recorded atenolol 25 mg tablet 25 mg PO BID #180 tabs 07/26/23 lisinopril 20 mg tablet 20 mg PO DAILY #90 tabs 08/19/23 tamsulosin 0.4 mg capsule 0.4 mg PO DAILY #90 caps 08/30/23 Allergies Allergy/AdvReac Type Severity Reaction Status Date / Time No Known Allergies Allergy Unknown Verified 08/27/23 09:10 Review of Systems Status of ROS: Reports: 10 or more systems reviewed and unremarkable except as noted in History and below Narrative: Constitutional: No fevers, no weight gain or loss. Eyes: No discharge. No vision changes. HENT: No congestion, no sore throat, no ear pain. Cardiovascular: No chest pain, no palpitations. Respiratory: No shortness of breath, no wheezes, no cough. Gastrointestinal: No abdominal pain, no vomiting, no diarrhea. Genitourinary: No dysuria, no hematuria. Musculoskeletal: Normal range of motion. Skin: No rashes, no pruritis. Neurological: No weakness, sensory change, speech change. Endo/Heme/Allergies: No bruising or bleeding. No polydipsia. Pysch: no suicidality, no anxiety, no insomnia. All other systems reviewed and are negative. [facility] Surgical History (Updated 08/27/23 @ 09:11 by Yolande Head ~ [facility], [facility]) History of vasectomy ?Z98.52 - Vasectomy status (ICD-10) History of hernia repair ?Z98.890 - Other specified postprocedural states (ICD-10) ?Z87.19 - Personal history of other diseases of the digestive system (ICD-10) History of colonoscopy ?Z98.890 - Other specified postprocedural states (ICD-10) History of arthroscopy of right knee ?Z98.890 - Other specified postprocedural states (ICD-10) Family History Other Adopted Tremor Social History Narrative: has 4 children- 1 in motorcycle accident Smoking Status: Never smoker Do you use any of these nicotine containing products: None Second hand tobacco smoke exposure: No How often do you have a drink containing alcohol: never How often do you have six or more drinks on one occasion: Never AUDIT-C Alcohol total score: 0 Non-prescribed substance use: denies use Little interest or pleasure in doing things: several days Feeling down, depressed, or hopeless: several days service: Yes Exam Narrative: Exam Narrative: Constitutional: Well-developed, well-nourished, no acute distress. HEENT: Normocephalic, atraumatic. Neck: Normal range of motion. Nontender. Supple. Heart: Regular. No murmurs. Normal rate. Intact distal pulses. Lungs: Clear to auscultation. No chest discomfort. No wheezes, rhonchi, or rales. Abdomen: Normal bowel sounds. Nontender. No rebound tenderness. Genitalia: Deferred. Back: No midline tenderness. Normal range of motion. Extremities: Normal range of motion. No injury. Skin: Intact. No rash. Warm. No erythema or pallor. Neurologic: No altered sensation. No weakness. Alert and oriented. Parkinson's tremor. Psychiatric: No suicidality. No anxiety or depression. No insomnia. Nursing notes and vitals signs are reviewed. Const: Vital Signs, click to edit/add: Vital Signs - 24 hr 10/15/23 19:28 Temperature 96.7 F L Pulse Rate [Pulse Oximeter] 57 L Respiratory Rate 16 Blood Pressure [Ri ght Upper Arm] 110/68 Pulse Oximetry 93 Oxygen Delivery Me thod Room Air Course Vital Signs Vital signs: Initial Vital Signs Temperature 96.7 F L 10/15/23 19:28 Temperature Source Temporal Artery Scan 10/15/23 19:28 Pulse Rate 57 L 10/15/23 19:28 Respiratory Rate 16 10/15/23 19:28 Blood Pressure 110/68 10/15/23 19:28 Blood Pressure Mean 82 10/15/23 19:28 Blood Pressure Position Supine 10/15/23 19:28 Pulse Oximetry 93 10/15/23 19:28 Oxygen Delivery Method Room Air 10/15/23 19:28 Vital Signs Temperature 96.7 F L 10/15/23 19:28 Pulse Rate 57 L 10/15/23 19:28 Respiratory Rate 16 10/15/23 19:28 Blood Pressure 110/68 10/15/23 19:28 Pulse Oximetry 93 10/15/23 19:28 Oxygen Delivery Method Room Air 10/15/23 19:28 Temperature 96.7 F L 10/15/23 19:28 Pulse Rate 57 L 10/15/23 19:28 Respiratory Rate 16 10/15/23 19:28 Blood Pressure 110/68 10/15/23 19:28 Pulse Oximetry 93 10/15/23 19:28 Oxygen Delivery Method Room Air 10/15/23 19:28 Medications Administered Medications: Generic Name Dose Route Start Last Admin Trade Name Freq PRN Reason Stop Dose Admin Sodium Chloride 1,000 mls @ 1,000 mls/hr 10/15/23 19:45 10/15/23 19:52 0.9 % Sodium Chloride 1000 Ml IV 10/15/23 20:44 1,000 mls/hr .Q1H YUMIKO Administration Medical Decision Making MDM Narrative Medical decision making narrative: This patient comes in for evaluation after syncopal event that occurred prior to arrival. He did receive the IV dose of 300 mL of normal saline prior to arrival and arrives here with systolic blood pressure at around 110. He maintained this blood pressure throughout the time here but when ambulance arrived at his home it was significantly lower. He does take an antihypertensive medicine in the morning and has not had any change of this dosing recently. EKG and labs returned with reassuring findings. There are no results that explain his syncopal event. He states that he feels back to normal. He is okay to be discharged home and states that he has plans to follow-up with his primary physician for review of plans. He also reports that his last week and he has been under extra duress because of this. Lab Data Labs: Lab Results 10/15/23 Range/Units 19:34 WBC 10.13 (4.50-11.00) K/uL RBC 4.39 (4.30-5.90) m/uL Hgb 10.8 L (13.5-17.5) gm/dL Hct 35.1 L (37.0-53.0) % MCV 80 (80-100) fL MCH 25 L (26-34) pg MCHC 31 L (32-36) gm/dL RDW Coeff of Brianna 18.7 H (11.5-15.5) % Plt Count 240 (140-440) K/uL Neut % (Auto) 79.8 H (42.0-72.0) % Lymph % (Auto) 11.2 L (20-44) % Meigs % (Auto) 7.8 (0.0-11.0) % Eos % (Auto) 0.8 (0.0-7.0) % Baso % (Auto) 0.2 (0.0-3.0) % Neut # (Auto) 8.10 H (1.7-7.0) K/uL Lymph # (Auto) 1.10 (0.90-2.90) K/uL Meigs # (Auto) 0.80 (0.00-0.90) K/UL Eos # (Auto) 0.08 (0.00-0.50) K/uL Baso # (Auto) 0.02 (0.00-0.30) K/uL Abs Immat Gran (auto) 0.02 (0.00-0.30) K/uL Imm/Tot Granulo (auto) 0.2 % Sodium 136 (135-149) mmol/L Potassium 4.0 (3.6-5.1) mmol/L Chloride 104 (96-114) mmol/L Carbon Dioxide 26 (20-32) mmol/L Anion Gap 6 L (7-15) mEq/L BUN 36 H (7-30) mg/dL Creatinine 1.7 H (0.5-1.5) mg/dL Estimated GFR 40 ml/min Glucose 154 H (60-115) mg/dL Calcium 9.7 (8.4-10.6) mg/dL POC Troponin I 0.00 L (0.01-0.04) ng/ml ECG Data Attestation: I personally reviewed and interpreted this ECG as follows: Interpretation: Normal sinus rhythm. Rate is 57 beats per minute. There are no ST or T-wave abnormalities. Discharge Plan Discharge Clinical Impression: Syncope Patient Disposition: Home w/ Parent or Adult Condition: Improved Additional Instructions: Continue current plans. Follow up with MD for review of medications. Return if symptoms are recurrent or worsening. Prescriptions: No Action carbidopa-levodopa 25-100 mg tablet 3 tab PO Q8H amantadine HCl 100 mg capsule 100 mg PO DAILY rivastigmine tartrate 1.5 mg capsule 1.5 mg PO BID atenolol 25 mg tablet 25 mg PO BID Qty: 180 0RF lisinopril 20 mg tablet 20 mg PO DAILY Qty: 90 2RF tamsulosin 0.4 mg capsule 0.4 mg PO DAILY Qty: 90 0RF Follow Up/Referrals: Josefina Guidry MD [Primary Care Provider] - Stand Alone Forms: CEDU Info Instructions
[2023-10-15] MEDS: 0.9 % SODIUM CHLORIDE 1000 ml 1,000 ML IV (19:52)
[2023-10-15 20:01] LABS: Basophils Absolute Auto 0.02 K/uL (0.00-0.30); Basophils Percent Auto 0.2 % (0.0-3.0); Eosinophils Absolute Auto 0.08 K/uL (0.00-0.50); Eosinophils Percent Auto 0.8 % (0.0-7.0); Hematocrit 35.1 % (37.0-53.0); Hemoglobin* 10.8 gm/dL (13.5-17.5); Immature Granulocytes Abs Auto 0.02 K/uL (0.00-0.30); Immature Granulocytes Pct Auto 0.2 %; Lymphocytes Percent Auto 11.2 % (20-44); Mean Corpuscular HGB Conc 31 gm/dL (32-36); Mean Corpuscular Hemoglobin 25 pg (26-34); Mean Corpuscular Volume 80 fL (80-100); Monocytes Percent Auto 7.8 % (0.0-11.0); Neutrophils Percent Auto 79.8 % (42.0-72.0); Platelet Count* 240 K/uL (140-440); RDW Coefficient of Variation % 18.7 % (11.5-15.5); Red Blood Count 4.39 m/uL (4.30-5.90); White Blood Count* 10.13 K/uL (4.50-11.00)
[2023-10-15 20:09] LABS: Slide Review Reflex No
[2023-10-15 20:14] LABS: Chloride* 104 mmol/L (96-114); Sodium* 136 mmol/L (135-149)
[2023-10-15 20:16] LABS: Creatinine* 1.7 mg/dL (0.5-1.5); Estimated Glomerular Filt Rate 40 ml/min
--- OUTSIDE RECORDS SUMMARY | 2023-10-15 20:16 | XMS_ITS | Encounter Summary ---
Author Organization [place] Address [facility] [place] [address] Care Team Providers Care Spare Hand Name Role Phone Li Meyer CARLOS MANAGER IT SECURITY Unavailable Un available Martha Ramires MD Primary Care Prov ider Martha Ramires MD Unavailable + Martha Ramires MD Unavailable + [facility]- Primary Care Provider [facility]- Primary Care Provider Reason for Visit * Reason Comments Medication Refill ibuprofen (ADVIL/MOT RIN) 600 MG tablet Encounter Details Date Type Department Care Team (Late st Contact Info) Description 09/12/2016 Refill [facility] [id number] [place] [phone] Martha Ramires MD PRIMARY ENT [address] [facility] [address] [place] [address] Medication Refill [...] # refills: 1 Last Office Visit with [facility], P or [facility] prescribing provider: 04/17/2016 Next 5 appointments (look out 90 days) Sep 13, 2016 3:45 PM CDT SHORT with Martha Ramires MD [facility] [address] [place] [phone] Creatinine Date Value Ref Range Status [...] encounter documented in this encounter Care Teams Spare Hand Relationship Specialty Start Date [place] [id number] [place] [address] PCP - General Family Practice 04/17/16 02/02/19 Martha Ramires MD PRIMARY ENT [address] [facility] [address] [place] [address] PCP - Assigned PCP 05/22/15 06/17/18 [facility] [address] [place] [address] PCP - General 02/03/19 04/09/19 [facility]- [address] [place] [address] PCP - General 04/10/19 Li Meyer APRN [facility] Nurse Practitioner Nurse Practitioner 02/17/14 08/09/23 Martha Ramires MD PRIMARY ENT [address] [facility] [address] [place] [address] Assigned PCP 05/22/15 11/26/20 documented as of this encounter
--- OUTSIDE RECORDS SUMMARY | 2023-10-15 20:16 | XMS_ITS | Encounter Summary ---
Author Organization [place] Address [facility] [place] [address] Care Team Providers Care Glass Forming Crew Member Name Role Phone Li Meyer CARLOS HEDGE FUND ACCOUNTANT Unavailable Un available Martha Ramires MD Primary Care Prov ider Martha Ramires MD Unavailable + Martha Ramires MD Unavailable + [facility]- Primary Care Provider [facility]- Primary Care Provider Reason for Visit * Reason Comments Medication Refill ibuprofen (ADVIL/MOT RIN) 600 MG tablet Encounter Details Date Type Department Care Team (Late st Contact Info) Description 08/21/2017 Refill [facility] [id number] [place] [phone] Martha Ramires MD PRIMARY ENT [address] [facility] [address] [place] [address] Medication Refill [...] Chevy Mark MD routed this conversation to [facility] Chevy Mark MD ?? 2:34 PM Note [...] encounter documented in this encounter Care Teams Glass Forming Crew Member Relationship Specialty [place] [address] [place] [address] PCP - General Family Practice 04/17/16 02/02/19 Martha Ramires MD PRIMARY ENT [address] [facility] [address] [place] [address] PCP - Assigned PCP 05/22/15 06/17/18 [facility]- [address], [place] [address] PCP - General 02/03/19 04/09/19 [facility]- [address] [place] [address] PCP - General 04/10/19 Li Meyer APRN [facility] Nurse Practitioner Nurse Practitioner 02/17/14 08/09/23 Martha Ramires MD [facility] [address] [facility] [address] [place] [address] Assigned PCP 05/22/15 11/26/20 documented as of this encounter
--- OUTSIDE RECORDS SUMMARY | 2023-10-15 20:16 | XMS_ITS | Encounter Summary ---
Author Organization [place] Address [facility] [place] [address] Care Team Providers Care Bone Drier Name Role Phone Li Meyer CARLOS ROLLER Unavailable Un available Martha Ramires MD Primary Care Prov ider Martha Ramires MD Unavailable + Martha Ramires MD Unavailable + [facility]- Primary Care Provider [facility]- Primary Care Provider Encounter Details Date Type Department Care Team (Late st Contact Info) Description 10/10/[address] [address] Lida Chao MD XXX [place] [address] ER ENCOUNTER (Primary Dx) Social History Tobacco [...] encounter Progress Notes * 10/10/2002 11:59 PM [id number] 00:00 Emergency Department Encounter-CAITLYN RAZO) [Entered: 00:00 Photographs Curator ([facility])] : 40 CHIEF COMPLAINT: Eye pain. HISTORY [...] pain. _ CAITLYN VÁZQUEZ MD [place]: Document: [id number] [place], [place] Name: AMRIK YOUNG MERGENCY ROOM ENCOUNTER Page 2 of 1 LCN: ER DSC: 10/10/2002 [place], [place] Name: AMRIK YOUNG MR#: : Admit Date: [id number] 1940 10/10/2002 Doctor: CAITLYN VÁZQUEZ MD EMERGENCY ROOM ENCOUNTER Page 1 of 1 Electronically filed by Danyelle Gomez 2:43 PM documented in this encounter Plan of Treatment Not on file documented as of this encounter Visit Diagnoses Diagnosis ER ENCOUNTER- Primary documented in this encounter Care Teams Bone Drier Relationship Specialty [place] [address] [place] [address] PCP - General Family Practice 04/17/16 02/02/19 Martha Ramires MD PRIMARY ENT [address] [facility] [address] [place] [address] PCP - Assigned PCP 05/22/15 06/17/18 [facility]- [address], [place] [address] PCP - General 02/03/19 04/09/19 [facility]- [address] [place] [address] PCP - General 04/10/19 Li Meyer APRN [facility] Nurse Practitioner Nurse Practitioner 02/17/14 08/09/23 Martha Ramires MD [facility] [address] [facility] [address] [place] [address] Assigned PCP 05/22/15 11/26/20 documented as of this encounter
--- OUTSIDE RECORDS SUMMARY | 2023-10-15 20:16 | XMS_ITS | Encounter Summary ---
Author Organization [place] Address [facility] [place] [address] Care Team Providers Care Scanning Coordinator Name Role Phone Li Meyer CARLOS COSMETICIAN Unavailable Un available Martha Ramires MD Primary Care Prov ider Martha Ramires MD Unavailable + Martha Ramires MD Unavailable + [facility]- Primary Care Provider [facility]- Primary Care Provider Reason for Visit * Reason Onset Date Comments Medication Refill 12/12/2017 ibuprofen (ADV IL/MOTRIN) 600 MG tablet Encounter Details Date Type Department Care Team (Late st Contact Info) Description 12/12/[address] [phone] Martha Ramires MD PRIMARY ENT [address] [facility] [address] [place] [address] Medication [...] See Patient Instructions ?? Martha Ramires MD [facility] Instructions Return in about 6 months [...] HCT 42.3 PLT 250 For [facility] ONLY: [id number] = WBC, [id number] = RBC Passed - Normal serum creatinine on file in past 12 months Recent Labs Lab Test 11/23/17 1125 CR 0.88 documented in this encounter Plan of Treatment Not on file documented as of this encounter Visit Diagnoses Diagnosis Osteoarthritis of multiple joints, unspecified osteoarthritis type documented in this encounter Care Teams Scanning Coordinator Relationship Specialty [place] [address] [place] [address] PCP - General Family Practice 04/17/16 02/02/19 Martha Ramires MD PRIMARY ENT [address] [facility] 13 [facility] [address] [place] [address] PCP - Assigned PCP 05/22/15 06/17/18 [facility]- [address] [place] [address] PCP - General 02/03/19 04/09/19 [facility]- [address] [place] [address] PCP - General 04/10/19 Li Meyer APRN COSMETICIAN Nurse Practitioner Nurse Practitioner 02/17/14 08/09/23 Martha Ramires MD PRIMARY ENT [address] [facility] 13 [facility] [address] [place] [address] Assigned PCP 05/22/15 11/26/20 documented as of this encounter
--- OUTSIDE RECORDS SUMMARY | 2023-10-15 20:16 | XMS_ITS | Continuity of Care Document ---
Author Organization [facility] Address [address] [address] [place] [address] Phone Care Team Providers Care Temporary Administrative Assistant Name Role Phone Alvarez Sanchez MD Unavailable [...] Diagnoses Date Provider Providers Copied on Encounter [facility], [address] [address], [place], [place], [id number], tel:[phone] [facility] No Information Laura Pino. [address] [place] [address], [id number], [place]. tel:[phone] Init Hosp-da E&m Mod Severity [facility], [address] [address], [place], [place], [id number], [place] tel:[phone] [facility] No Information Jerri Weber. [address] [place] [address], [place], [place], [id number], [place]. tel:[phone] Referring Provider: Tia Guthrie MD, [address] [place] [address], [place], [address]. tel:[phone] Family History Family Member Type Diagnosis Age At Onset No Information Payers Payer name Insurance type Covered libertarian ID Authoriza timary(s) [employer] Gold Choice 16 [id number] Social History Type Description Quantity Date Captured [...]
--- OUTSIDE RECORDS SUMMARY | 2023-10-15 20:16 | XMS_ITS | Encounter Summary ---
Author Organization [place] Address [facility] [place] [address] Care Team Providers Care Jet Piercer Operator Name Role Phone Li Meyer CARLOS ENGAGEMENT LEAD Unavailable Un available Martha Ramires MD Primary Care Prov ider Martha Ramires MD Unavailable + Martha Ramires MD Unavailable + [facility]- Primary Care Provider [facility] Primary Care Provider Reason for Visit * Reason Comments Medication Refill Lisinopril, Tamsulos in Encounter Details Date Type Department Care Team (Late st Contact Info) Description 10/22/[address] [phone] Martha Ramires MD PRIMARY ENT [address] [facility] [address] [place] [address] Medication Refill (Lisinopril, Tamsulosin) Social [...] OV and labs ?? Prescription approved per [facility] Refill Protocol. For 30 [...] symptoms documented in this encounter Care Teams Jet Piercer Operator Relationship Specialty [place] [address] [place] [address] PCP - General Family Practice 04/17/16 02/02/19 Martha Ramires MD PRIMARY ENT [address] [facility] [address] [place], [place] [address] PCP - Assigned PCP 05/22/15 06/17/18 [facility]- [address] [place] [address] PCP - General 02/03/19 04/09/19 [facility]- [address] [place] [address] PCP - General 04/10/19 Li Meyer APRN ENGAGEMENT LEAD Nurse Practitioner Nurse Practitioner 02/17/14 08/09/23 Martha Ramires MD PRIMARY ENT [address] [facility] [address] [place] [address] Assigned PCP 05/22/15 11/26/20 documented as of this encounter
--- OUTSIDE RECORDS SUMMARY | 2023-10-15 20:16 | XMS_ITS | Encounter Summary ---
Author Organization [place] Address [facility] [place] [address] Care Team Providers Care Animal Eviscerator Name Role Phone Li Meyer CARLOS TRUST OFFICER Unavailable Un available Martha Ramires MD Primary Care Prov ider Martha Ramires MD Unavailable + Martha Ramires MD Unavailable + [facility]- Primary Care Provider [facility]- Primary Care Provider Encounter Details Date Type Department Care Team (Late st Contact Info) Description 10/27/[address] [phone] Ibis Chao MD XXX [place] INFO [place] [address] Social History Tobacco Use Types Packs/Day Years [...] CDTADMISSION HISTORY & PHYSICAL AMRIK YOUNG [facility] IBIS CHAO MD 10/27/03 CC: Amrik Young [...] his were home [place] on a [employer] project. They had unloaded some flagstone from [...] dehydration and physical e xertion, cardiac (R/O SC and tele for dysrhythmias), neurlologic (ischemic or toxin-chronic ETOH) 2. ETOH abuse/suspect dependence - opportunity for intervention, is supportive 3. Hypertension - currently sub-optimal control and labile (was in range on 10/14/03 in clinic) 4. Contusions and fac ial laceration PLAN: 1. R/O SC, Cardiology Consult, Neurology Consult, Psychology/Psychiatry and Chem Dep 2. ETOH withdrawal protocol, hydration, Chem Dep, Psych 3. May benefit from B-mague 4 . Local cares Ibis Chao MD documented in this encounter Plan of Treatment Not on file documented as of this encounter Visit Diagnoses Not on filedocumented in this encounter Care Teams Animal Eviscerator Relationship Specialty [place] [address] [place] [address] PCP - General Family Practice 04/17/16 02/02/19 Martha Ramires MD PRIMARY ENT [address] [facility] [address] [place], [place] [id number] PCP - Assigned PCP 05/22/15 06/17/18 [facility]- [address] [place] [address] PCP - General 02/03/19 04/09/19 [facility]- [address] [place] [address] PCP - General 04/10/19 Li Meyer APRN TRUST OFFICER Nurse Practitioner Nurse Practitioner 02/17/14 08/09/23 Martha Ramires MD PRIMARY ENT [address] [facility] [address] [place] [address] Assigned PCP 05/22/15 11/26/20 documented as of this encounter
--- OUTSIDE RECORDS SUMMARY | 2023-10-15 20:16 | XMS_ITS | Referral Summary ---
Author Organization [place] Address [facility] [place] [address] Care Team Providers Care Dipper Clock And Watch Hands Name Role Phone [facility]- Primary Care Provider Allergies Active [...] 81.6 kg (180 lb) 04/10/2019 8:50 AM MARKETING ADMIN Height 172.7 cm (5' 8) 04/10/2019 8:50 AM MARKETING ADMIN Body Mass Index 27.37 04/10/2019 8:50 AM MARKETING ADMIN Plan of Treatment Not on file Procedures Procedure Name Priority Date/Time Associated Diagnosis Comments CBC WITH PLATELETS & DIFFERENTIAL STAT 08/12/2020 5:29 PM CDT COMPREHENSIVE METABOLIC PANEL STAT 08/12/2020 5:29 PM CDT COLONOSCOPY Routine 04/10/2019 9:06 AM MARKETING ADMIN OCCULT BLOOD STOOL STAT 02/03/2019 7: 07 PM CDT LIPID REFLEX TO DIRECT LDL PANEL Routine 02/18/2014 9:10 AM MARKETING ADMIN HTN, goal below 140/90 from Last 3 Months or Most Recently Relevant to Health Maintenance Results * (ABNORMAL) CBC with platelets differential (08/12/2020 5:29 PM CDT) WBC 7.7 4.0 - 11.0 10e9/L 08/12/2020 6:03 PM CDT [facility] RBC Count 4.64 4.4 - 5.9 10e12/L 08/12/2020 6:03 PM CDT [facility] Hemoglobin 13.1(L) 13.3 - 17.7 g/dL 08/12/2020 6:03 PM CDT [facility] Hematocrit 40.8 40.0 - 53.0 % 08/12/2020 6:03 PM T [facility] MCV 88 78 - 100 fl 08/12/2020 6:03 PM CDT [facility] MCH 28.2 26.5 - 33.0 pg 08/12/2020 6:03 PM [facility] MCHC 32.1 31.5 - 36.5 g/dL 08/12/2020 6:03 PM [facility] RDW 14.1 10.0 - 15.0 % 08/12/2020 6:03 PM [facility] Platelet Count 263 150 - 450 10e9/L 08/12/2020 6:03 PM [facility] Diff Method Automated Method 08/12/2020 6:03 PM [facility] % Neutrophils 67.5 % 08/12/2020 6:03 PM [facility] % Lymphocytes 18.3 % 08/12/2020 6:03 PM [facility] % Monocytes 9.9 % 08/12/2020 6:03 PM [facility] % Eosinophils 3.0 % 08/12/2020 6:03 PM [facility] % Basophils 0.9 % 08/12/2020 6:03 PM [facility] % Immature Granulocytes 0.4 % 08/12/2020 6:03 PM [facility] Nucleated RBCs 0 0 /100 08/12/2020 6:03 PM [facility] Absolute Neutrophil 5.2 1.6 - 8.3 10e9/L 08/12/2020 6:03 PM [facility] Absolute Lymphocytes 1.4 0.8 - 5.3 10e9/L 08/12/2020 6:03 PM [facility] Absolute Monocytes 0.8 0.0 - 1.3 10e9/L 08/12/2020 6:03 PM [facility] Absolute Eosinophils 0.2 0.0 - 0.7 10e9/L 08/12/2020 6:03 PM [facility] Absolute Basophils 0.1 0.0 - 0.2 10e9/L 08/12/2020 6:03 PM [facility] Abs Immature Granulocytes 0.0 0 - 0.4 10e9/L 08/12/2020 6:03 PM [facility] Absolute Nucleated RBC 0.0 08/12/2020 6:03 PM [facility] Blood 08/12/2020 5:29 PM CDT 08/12/2020 6:00 PM CDT Tomás Lee PA-C LAB - BLOOD ORDERABLES [facility] [address] [place] [id number], [facility] [phone] * (ABNORMAL) Comprehensive metabolic panel (08/12/2020 5:29 PM CDT) Sodium 143 133 - 144 mmol/L 08/12/2020 6:12 PM CDT [facility] Potassium 4.1 3.4 - 5.3 mmol/L 08/12/2020 6:12 PM T [facility] Chloride 110(H) 94 - 109 mmol/L 08/12/2020 6:12 PM T [facility] Carbon Dioxide 28 20 - 32 mmol/L 08/12/2020 6:20 PM T [facility] Anion Gap 5 3 - 14 mmol/L 08/12/2020 6:20 PM T [facility] Glucose 95 70 - 99 mg/dL 08/12/2020 6:20 PM [facility] Urea Nitrogen 20 7 - 30 mg/dL 08/12/2020 6:20 PM [facility] Creatinine 1.03 0.66 - 1.25 mg/dL 08/12/2020 6:20 PM [facility] GFR Estimate 68 >60 mL/min/{1. 73_m2} 08/12/2020 6:20 PM [facility] Comment: Non GFR Calc Starting 04/01/2018, serum creatinine based estimated GFR (eGFR) will be calculated using the Chronic Kidney Disease Epidemiology Collaboration (CKD-EPI) equation. GFR Estimate If Black 79 >60 mL/min/{1. 73_m2} 08/12/2020 6:20 PM T [facility] Comment: GFR Calc Starting 04/01/2018, serum creatinine based estimated GFR (eGFR) will be calculated using the Chronic Kidney Disease Epidemiology Collaboration (CKD-EPI) equation. Calcium 8.9 8.5 - 10.1 mg/dL 08/12/2020 6:20 PM CDT [facility] Bilirubin Total 0.5 0.2 - 1.3 mg/dL 08/12/2020 6:21 PM CDT [facility] Albumin 3.4 3.4 - 5.0 g/dL 08/12/2020 6:21 PM CDT [facility] Protein Total 7.0 6.8 - 8.8 g/dL 08/12/2020 6:21 PM CDT [facility] Alkaline Phosphatase 66 40 - 150 U/L 08/12/2020 6:21 PM CDT [facility] ALT 9 0 - 70 U/L 08/12/2020 6:21 PM CDT [facility] AST 11 0 - 45 U/L 08/12/2020 6:21 PM CDT [facility] Blood 08/12/2020 5:29 PM CDT 08/12/2020 6:00 PM CDT Tomás Lee PA-C LAB - BLOOD ORDERABLES [facility] [address] [place] [address], [facility] [phone] [facility] [address] [place] [address], [facility] [phone] * COLONOSCOPY (04/10/2019 9:06 AM MARKETING ADMIN) COLONOSCOPY [facility] Patient Name: Homero Young ? Procedure Date: [...] # [id number], ?[place] # [id number], SN # [id number] was introduced through ?the anus and advanced [...] history of colonic polyps CPT copyright 2018 [employer]. All rights reserved. The codes documented in this report are preliminary and upon director integrated review may be revised to meet current compliance requirements. Electronically signed by Homero Eric MD __ Homero Eric MD 04/10/2019 9:34:07 AM I was physically present for the entire viewing portion of the exam. Homero Eric MD Number of Addenda: 0 Note Initiated On: 04/10/2019 9:06 AM MRN: ?[id number] Procedure Date: ? 04/10/2019 9:06:30 AM Scope Withdrawal Time: 0 hours 6 minutes 9 seconds Total Procedure Duration: 0 hours 12 minutes 0 seconds Estimated Blood Loss: ? Scope In: 9:11:12 AM Scope Out: 9:23:12 AM RADIOLOGY RESULTS 04/10/2019 9:06 AM MARKETING ADMIN Martha Ramires MD PROCEDURES RADIOLOGY RESULTS * (ABNORMAL) Occult blood stool (02/03/2019 7:07 PM CDT) Occult Blood Positive(A ) NEG^Negati ve 02/03/2019 7:26 PM CDT [facility] Comment: Called to ALYCIA PUCKETT (ERB) 02.03.19 AT 1926 BY ADALBERTO Stool specimen (specimen) 02/03/2019 7:07 PM CDT 02/03/2019 7:16 PM CDT Hamzah Quesada PA-C LAB - STOOLS ORDERABLES Performing Organization Address City/[facility]/ZIP Co de Phone Number [facility] [address] [place] [address], [facility] [phone] * Lipid panel reflex to direct LDL (02/18/2014 9:10 AM MARKETING ADMIN) Cholesterol 181 <200 mg/dL [facility] Comment: LDL Cholesterol is the primary guide to therapy. The NCEP recommends further evaluation of: patients with cholesterol greater than 200 mg/dL if additional risk factors are present, cholesterol greater than 240 mg/dL, triglycerides greater than 150 mg/dL, or HDL less than 40 mg/dL. Triglycerides 134 0 - 150 mg/dL [facility] Comment:Fasting specimen HDL Cholesterol 52 >40 mg/dL [facility] LDL Cholesterol Calculated 102 0 - 129 mg/dL [facility] Comment: LDL Cholesterol is the primary guide to therapy: LDL-cholesterol goal in high risk patients is <100 mg/dL and in very high risk patients is <70 mg/dL. VLDL-Cholesterol 27 0 - 30 mg/dL [facility] Cholesterol/HDL Ratio 3.5 0.0 - 5.0 [facility] Blood specimen (specimen) 02/18/2014 9:10 AM MARKETING ADMIN 02/18/2014 3:05 PM MARKETING ADMIN Li Meyer RELIGION DEPARTMENT CHAIR HYDRAULIC MINER LAB - BLOOD ORDERABLES [facility] [address] [place] [address] from Last 3 Months or Most Recently Relevant to Health Maintenance Advance Directives For more information, please contact: [phone] Documents on File Type Date Recorded Patient Waste Machine Offbearer Expl anation Advance Directives and Living Will [...] maria victoria nt/legal decision maker Care Teams Dipper Clock And Watch Hands Relationship Specialty Start Date End Date [facility]- [address] [place] [address] PCP - General 04/10/19
--- OUTSIDE RECORDS SUMMARY | 2023-10-15 20:16 | XMS_ITS | Clinical Summary ---
Author Organization [place] Address [facility] [place] [address] Care Team Providers Care Hand Sprayer Name Role Phone [facility], [facility]- Primary Care Provider Allergies [...] 81.6 kg (180 lb) 04/10/2019 8:50 AM COMPUTER PROGRAMMING SUPERVISOR Height 172.7 cm (5' 8) 04/10/2019 8:50 AM COMPUTER PROGRAMMING SUPERVISOR Body Mass Index 27.37 04/10/2019 8:50 AM COMPUTER PROGRAMMING SUPERVISOR Plan of Treatment Health Maintenance Due Date [...] year) 2023 09/27/2016, 04/17/2016, 01/05/2015 INFLUENZA VACCINE (#1) 2023 , 02/09/2019, 02/04/2018, Additional history exists COLONOSCOPY 04/10/2024 [...] PM CDT COLONOSCOPY Routine 04/10/2019 9:06 AM COMPUTER PROGRAMMING SUPERVISOR OCCULT BLOOD STOOL STAT 02/03/2019 7: 07 PM CDT LIPID REFLEX TO DIRECT LDL PANEL Routine 02/18/2014 9:10 AM COMPUTER PROGRAMMING SUPERVISOR HTN, goal below 140/90 from Last 3 Months or Most Recently Relevant to Health Maintenance Results * (ABNORMAL) CBC with platelets differential (08/12/2020 5:29 PM CDT) WBC 7.7 4.0 - 11.0 10e9/L 08/12/2020 6:03 PM CDT [facility] RBC Count 4.64 4.4 - 5.9 10e12/L 08/12/2020 6:03 PM CDT [facility] Hemoglobin 13.1(L) 13.3 - 17.7 g/dL 08/12/2020 [facility] Hematocrit 40.8 40.0 - 53.0 % 08/12/2020 6:03 PM [facility] MCV 88 78 - 100 fl 08/12/2020 6:03 PM [facility] MCH 28.2 26.5 - 33.0 pg 08/12/2020 6:03 PM [facility] MCHC 32.1 31.5 - 36.5 g/dL 08/12/2020 6:03 PM [facility] RDW 14.1 10.0 - 15.0 % 08/12/2020 6:03 PM [facility] Platelet Count 263 150 - 450 10e9/L 08/12/2020 6:03 PM [facility] Diff Method Automated Method 08/12/2020 6:03 PM [facility] % Neutrophils 67.5 % 08/12/2020 6:03 PM [facility] % Lymphocytes 18.3 % 08/12/2020 6:03 PM [facility] % Monocytes 9.9 % 08/12/2020 6:03 PM [facility] % Eosinophils 3.0 % 08/12/2020 6:03 PM [facility] % Basophils 0.9 % 08/12/2020 6:03 PM [facility] % Immature Granulocytes 0.4 % 08/12/2020 6:03 PM [facility] Nucleated RBCs 0 0 /100 08/12/2020 6:03 PM [facility] Absolute Neutrophil 5.2 1.6 - 8.3 10e9/L 08/12/2020 6:03 PM [facility] Absolute Lymphocytes 1.4 0.8 - 5.3 10e9/L 08/12/2020 6:03 PM [facility] Absolute Monocytes 0.8 0.0 - 1.3 10e9/L 08/12/2020 6:03 PM [facility] Absolute Eosinophils 0.2 0.0 - 0.7 10e9/L 08/12/2020 6:03 PM [facility] Absolute Basophils 0.1 0.0 - 0.2 10e9/L 08/12/2020 6:03 PM CDT [facility] Abs Immature Granulocytes 0.0 0 - 0.4 10e9/L 08/12/2020 6:03 PM CDT [facility] Absolute Nucleated RBC 0.0 08/12/2020 6:03 PM T [facility] Blood 08/12/2020 5:29 PM CDT 08/12/2020 6:00 PM CDT Tomás Lee PA-C LAB - BLOOD ORDERABLES [facility] [address] [place] [address] [phone] * (ABNORMAL) Comprehensive metabolic panel (08/12/2020 5:29 PM CDT) Sodium 143 133 - 144 mmol/L 08/12/2020 6:12 PM [facility] Potassium 4.1 3.4 - 5.3 mmol/L 08/12/2020 6:12 PM [facility] Chloride 110(H) 94 - 109 mmol/L 08/12/2020 6:12 PM [facility] Carbon Dioxide 28 20 - 32 mmol/L 08/12/2020 6:20 PM [facility] Anion Gap 5 3 - 14 mmol/L 08/12/2020 6:20 PM [facility] Glucose 95 70 - 99 mg/dL 08/12/2020 6:20 PM [facility] Urea Nitrogen 20 7 - 30 mg/dL 08/12/2020 6:20 PM [facility] Creatinine 1.03 0.66 - 1.25 mg/dL 08/12/2020 6:20 PM [facility] GFR Estimate 68 >60 mL/min/{1. 73_m2} 08/12/2020 6:20 PM [facility] Comment: Non GFR Calc Starting 04/01/2018, serum creatinine based estimated GFR (eGFR) will be calculated using the Chronic Kidney Disease Epidemiology Collaboration (CKD-EPI) equation. GFR Estimate If Black 79 >60 mL/min/{1. 73_m2} 08/12/2020 6:20 PM CDT [facility] Comment: GFR Calc Starting 04/01/2018, serum creatinine based estimated GFR (eGFR) will be calculated using the Chronic Kidney Disease Epidemiology Collaboration (CKD-EPI) equation. Calcium 8.9 8.5 - 10.1 mg/dL 08/12/2020 6:20 PM CDT [facility] Bilirubin Total 0.5 0.2 - 1.3 mg/dL 08/12/2020 6:21 PM CDT [facility] Albumin 3.4 3.4 - 5.0 g/dL 08/12/2020 6:21 PM CDT [facility] Protein Total 7.0 6.8 - 8.8 g/dL 08/12/2020 6:21 PM T [facility] Alkaline Phosphatase 66 40 - 150 U/L 08/12/2020 6:21 PM CDT [facility] ALT 9 0 - 70 U/L 08/12/2020 6:21 PM T [facility] AST 11 0 - 45 U/L 08/12/2020 6:21 PM T [facility] Blood 08/12/2020 5:29 PM CDT 08/12/2020 6:00 PM CDT Tomás Lee PA-C LAB - BLOOD ORDERABLES [facility] [address] [address], [facility] [phone] [facility] [address] [place] [address], [facility] [phone] * COLONOSCOPY (04/10/2019 9:06 AM COMPUTER PROGRAMMING SUPERVISOR) COLONOSCOPY [facility] Patient Name: Homero Young ? [...] # [id number], ?[place] # [id number], SN # [id number] was introduced through ?the anus and advanced [...] history of colonic polyps CPT copyright 2018 [employer]. All rights reserved. The codes documented in this report are preliminary and upon agronomy teacher review may be revised to meet current compliance requirements. Electronically signed by Homero Eric MD __ Homero Eric MD 04/10/2019 9:34:07 AM I was physically present for the entire viewing portion of the exam. Homero Eric MD Number of Addenda: 0 Note Initiated On: 04/10/2019 9:06 AM MRN: ?[id number] Procedure Date: ? 04/10/2019 9:06:30 AM Scope Withdrawal Time: 0 hours 6 minutes 9 seconds Total Procedure Duration: 0 hours 12 minutes 0 seconds Estimated Blood Loss: ? Scope In: 9:11:12 AM Scope Out: 9:23:12 AM RADIOLOGY RESULTS 04/10/2019 9:06 AM COMPUTER PROGRAMMING SUPERVISOR Martha Ramires MD PROCEDURES RADIOLOGY RESULTS * (ABNORMAL) Occult blood stool (02/03/2019 7:07 PM CDT) Occult Blood Positive(A ) NEG^Negati ve 02/03/2019 7:26 PM CDT [facility] Comment: Called to ALYCIA PUCKETT (ERB) 02.03.19 AT 1926 BY ADALBERTO Stool specimen (specimen) 02/03/2019 7:07 PM CDT 02/03/2019 7:16 PM CDT Hamzah Quesada PA-C LAB - STOOLS ORDERABLES Performing Organization Address City/[facility]/ZIP Co de Phone Number [facility] [address] [place] [address], [facility] [phone] * Lipid panel reflex to direct LDL (02/18/2014 9:10 AM COMPUTER PROGRAMMING SUPERVISOR) Cholesterol 181 <200 mg/dL [facility] Comment: LDL Cholesterol is the primary guide to therapy. The NCEP recommends further evaluation of: patients with cholesterol greater than 200 mg/dL if additional risk factors are present, cholesterol greater than 240 mg/dL, triglycerides greater than 150 mg/dL, or HDL less than 40 mg/dL. Triglycerides 134 0 - 150 mg/dL [facility] Comment:Fasting specimen HDL Cholesterol 52 >40 mg/dL [facility] LDL Cholesterol Calculated 102 0 - 129 mg/dL [facility] Comment: LDL Cholesterol is the primary guide to therapy: LDL-cholesterol goal in high risk patients is <100 mg/dL and in very high risk patients is <70 mg/dL. VLDL-Cholesterol 27 0 - 30 mg/dL [facility] Cholesterol/HDL Ratio 3.5 0.0 - 5.0 [facility] Blood specimen (specimen) 02/18/2014 9:10 AM COMPUTER PROGRAMMING SUPERVISOR 02/18/2014 3:05 PM COMPUTER PROGRAMMING SUPERVISOR Li Meyer APRN ALLIGATOR SHEAR OPERATOR LAB - BLOOD ORDERABLES [facility] [address] [place] [address] from Last 3 Months or Most Recently Relevant to Health Maintenance Advance Directives For more information, please contact: [phone] Documents on File Type Date Recorded Patient Recorder Helper Gravity Prospecting Expl anation Advance Directives and Living Will [...] with patie nt/legal decision maker Care Teams Hand Sprayer Relationship Specialty Start Date End Date [facility]- [address] [place] [address] PCP - General 04/10/19
[2023-10-15 20:17] LABS: Anion Gap 6 mEq/L (7-15); Blood Urea Nitrogen* 36 mg/dL (7-30); Calcium* 9.7 mg/dL (8.4-10.6); Carbon Dioxide* 26 mmol/L (20-32); Glucose* 154 mg/dL (60-115)
== END 2023-10-15 21:20 | disposition home or self-care (01) ==
PROVIDERS: Emergency Provider Emergency Medicine Emergency Medical Services; PCP Family Medicine
DX: R55 Syncope and collapse (principal)
CPT/HCPCS: 36415; 80048; 84484; 85025; 93005; 99284; J7030

== ENCOUNTER 2024-01-06 14:32 | Outpatient (CLI) | payer MEDICARE, SELFPAY ==
--- OUTSIDE RECORDS SUMMARY | 2024-01-06 14:35 | XMS_ITS | Encounter Summary ---
Author Organization [place] Address [facility] [place] [address] Care Team Providers Care Temperature Regulator Pyrometer Name Role Phone Li Meyer CARLOS HEEL COVERER Unavailable Un available Martha Ramires MD Primary Care Prov ider Martha Ramires MD Unavailable + Martha Ramires MD Unavailable + [facility]- Primary Care Provider [facility]- Primary Care Provider Encounter Details Date Type Department Care Team (Late st Contact Info) Description 10/10/[address] [phone] Lida Chao MD [place] [address] ER ENCOUNTER (Primary Dx) Social History Tobacco [...] encounter Progress Notes * 10/10/2002 11:59 PM [id number] 00:00 Emergency Department Encounter-CAITLYN RAZO) [Entered: 00:00 Plant Control Aide ([facility])] : 40 CHIEF COMPLAINT: Eye pain. HISTORY [...] pain. _ CAITLYN VÁZQUEZ MD [place]: Document: [id number] [place], [place] Name: AMRIK YOUNG MERGENCY ROOM ENCOUNTER Page 2 of 1 LCN: ER DSC: 10/10/2002 [place] Name: AMRIK YOUNG MR#: : Admit Date: 2040-09-04-35 1940 10/10/2002 Doctor: CAITLYN VÁZQUEZ MD EMERGENCY ROOM ENCOUNTER Page 1 of 1 Electronically filed by Danyelle Gomez 2:43 PM documented in this encounter Plan of Treatment Not on file documented as of this encounter Visit Diagnoses Diagnosis ER ENCOUNTER- Primary documented in this encounter Care Teams Temperature Regulator Pyrometer Relationship Specialty [place] [address] [place] [address] PCP - General Family Practice 04/17/16 02/02/19 Martha Ramires MD PRIMARY ENT [address] [facility] [address] [place] [address] PCP - Assigned PCP 05/22/15 06/17/18 [facility]- [address], [place] [address] PCP - General 02/03/19 04/09/19 [facility]- [address] [place] [address] PCP - General 04/10/19 Li Meyer APRN HEEL COVERER Nurse Practitioner Nurse Practitioner 02/17/14 08/09/23 Martha Ramires MD [facility] [address] [facility] [address] [place] [address] Assigned PCP 05/22/15 11/26/20 documented as of this encounter
--- OUTSIDE RECORDS SUMMARY | 2024-01-06 14:35 | XMS_ITS | Encounter Summary ---
Author Organization [place] Address [facility] [place] [address] Care Team Providers Care Supervisor Webbing Name Role Phone Li Meyer CARLOS UNIVERSAL GRINDER OPERATOR Unavailable Un available Martha Ramires MD Primary Care Prov ider Martha Ramires MD Unavailable + Martha Ramires MD Unavailable + [facility]- Primary Care Provider [facility]- Primary Care Provider Reason for Visit * Reason Comments Medication Refill ibuprofen (ADVIL/MOT RIN) 600 MG tablet Encounter Details Date Type Department Care Team (Late st Contact Info) Description 09/12/2016 Refill [facility] [id number] [place] [address] Martha Ramires MD PRIMARY ENT [address] [facility] [address] [place] [address] Medication [...] # refills: 1 Last Office Visit with [facility], P or [facility] prescribing provider: 04/17/2016 Next 5 appointments (look out 90 days) Sep 13, 2016 3:45 PM CDT SHORT with Martha Ramires MD [facility] ([facility]) [address] [place] [phone] Creatinine Date Value Ref Range Status [...] encounter documented in this encounter Care Teams Supervisor Webbing Relationship Specialty Start Date [place] [id number] [place] [address] PCP - General Family Practice 04/17/16 02/02/19 Martha Ramires MD [facility] [address] [facility] [address] [place] [address] PCP - Assigned PCP 05/22/15 06/17/18 [facility]- [address] [place] [address] PCP - General 02/03/19 04/09/19 [facility]- [address] [place] [address] PCP - General 04/10/19 Li Meyer APRN [facility] Nurse Practitioner Nurse Practitioner 02/17/14 08/09/23 Martha Ramires MD [facility] [address] [facility] [address] [place] [address] Assigned PCP 05/22/15 11/26/20 documented as of this encounter
--- OUTSIDE RECORDS SUMMARY | 2024-01-06 14:35 | XMS_ITS | Encounter Summary ---
Author Organization [place] Address [facility] [place] [address] Care Team Providers Care Footwear Sales Coordinator Name Role Phone Li Meyer CARLOS PL SQL PROGRAMMER Unavailable Un available Martha Ramires MD Primary Care Prov ider Martha Ramires MD Unavailable + Martha Ramires MD Unavailable + [facility]- Primary Care Provider [facility]- Primary Care Provider Reason for Visit * Reason Onset Date Comments Medication Refill 12/12/2017 ibuprofen (ADV IL/MOTRIN) 600 MG tablet Encounter Details Date Type Department Care Team (Late st Contact Info) Description 12/12/[address] [phone] Martha Ramires MD PRIMARY ENT [address] [facility] [address] [place] [address] [...] See Patient Instructions ?? Martha Ramires MD [facility] Instructions Return in about 6 [...] HCT 42.3 PLT 250 For [facility] ONLY: [id number] = WBC, BJUI267 = RBC Passed - Normal serum creatinine on file in past 12 months Recent Labs Lab Test 11/23/17 1125 CR 0.88 documented in this encounter Plan of Treatment Not on file documented as of this encounter Visit Diagnoses Diagnosis Osteoarthritis of multiple joints, unspecified osteoarthritis type documented in this encounter Care Teams Footwear Sales Coordinator Relationship Specialty [place] [address] [place] [address] PCP - General Family Practice 04/17/16 02/02/19 Martha Ramires MD PRIMARY ENT [address] [facility] [address] [facility] [address] [place] [address] PCP - Assigned PCP 05/22/15 06/17/18 [facility]- [address] [place] [address] PCP - General 02/03/19 04/09/19 [facility]- [address] [place] [address] PCP - General 04/10/[address] SQL PROGRAMMER Nurse Practitioner Nurse Practitioner 02/17/14 08/09/23 Martha Ramires MD PRIMARY ENT [address] [facility] [address] [facility] [address] [place] [address] Assigned PCP 05/22/15 11/26/20 documented as of this encounter
--- OUTSIDE RECORDS SUMMARY | 2024-01-06 14:35 | XMS_ITS | Encounter Summary ---
Author Organization [place] Address Counts include 234 beds at the [facility] [place] [address] Care Team Providers Care Manufacturing Advisor Name Role Phone Li Meyer CARLOS CENTRAL STORES ATTENDANT Unavailable Un available Martha Ramires MD Primary Care Prov ider Martha Ramires MD Unavailable + Martha Ramires MD Unavailable + [facility]- Primary Care Provider [facility]- Primary Care Provider Reason for Visit * Reason Comments Medication Refill Lisinopril, Tamsulos in Encounter Details Date Type Department Care Team (Late st Contact Info) Description 10/22/[address] [phone] Martha Ramires MD PRIMARY ENT [address] [facility] [address] [place] [address] Medication Refill (Lisinopril, Tamsulosin) Social [...] and labs ?? Prescription approved per [facility] Refill Protocol. For 30 day fill ?? [...] symptoms documented in this encounter Care Teams Manufacturing Advisor Relationship Specialty [place] [address] [place] [address] PCP - General Family Practice 04/17/16 02/02/19 Martha Ramires MD PRIMARY ENT [address] [facility] [address] [place], [place] [address] PCP - Assigned PCP 05/22/15 06/17/18 [facility]- [address] [place] [address] PCP - General 02/03/19 04/09/19 [facility]- [address] [place] [address] PCP - General 04/10/19 Li Meyer APRN CENTRAL STORES ATTENDANT Nurse Practitioner Nurse Practitioner 02/17/14 08/09/23 Martha Ramires MD PRIMARY ENT [address] [facility] [address] [place] [address] Assigned PCP 05/22/15 11/26/20 documented as of this encounter
--- OUTSIDE RECORDS SUMMARY | 2024-01-06 14:35 | XMS_ITS | Encounter Summary ---
Author Organization [place] Address [facility] [place] [address] Care Team Providers Care Cutter Operator Asbestos Shingle Name Role Phone Li Meyer CARLOS MACHINE FANCY STITCHER Unavailable Un available Martha Ramires MD Primary Care Prov ider Martha Ramires MD Unavailable + Martha Ramires MD Unavailable + [facility]- Primary Care Provider [facility]- Primary Care Provider Reason for Visit * Reason Comments Medication Refill ibuprofen (ADVIL/MOT RIN) 600 MG tablet Encounter Details Date Type Department Care Team (Late st Contact Info) Description 08/21/2017 Refill [facility] [id number] [place] [phone] Martha Ramires MD PRIMARY ENT [address] [facility] [address] [place] [address] Medication Refill [...] 12 months * Telephone Encounter - Zahraa iKng - 08/21/2017 2:26 PM CDT Requested Prescriptions [...] encounter documented in this encounter Care Teams Cutter Operator Asbestos Shingle Relationship Specialty Start [place] [address] [place] [address] PCP - General Family Practice 04/17/16 02/02/19 Martha Ramires MD PRIMARY ENT [address] [facility] [address] [place] [address] PCP - Assigned PCP 05/22/15 06/17/18 [facility]- [address], [place] [address] PCP - General 02/03/19 04/09/19 [facility]- [address] [place] [address] PCP - General 04/10/19 Li Meyer APRN [facility] Nurse Practitioner Nurse Practitioner 02/17/14 08/09/23 Martha Ramires MD [facility] [address] [facility] [address] [place] [address] Assigned PCP 05/22/15 11/26/20 documented as of this encounter
--- OUTSIDE RECORDS SUMMARY | 2024-01-06 14:35 | XMS_ITS | Referral Summary ---
Author Organization [place] Address [facility] [place] [address] Care Team Providers Care Brazer Controlled Atmospheric Furnace Name Role Phone [facility], [facility]- Primary Care Provider Allergies [...] 07/07/2014. Advance Care Planning: Initial facilitation introduction: oHmero Young presented for initial session regarding ACP [...] MONOVALENT 12+ (Pfizer) 01/26/2021 Influenza (High Dose) Trival ent,PF (Fluzone) 02/09/2019,02/04/2018,03/16/2017,2016,02/17/2014,01/03/2012 Influenza (IIV3) PF 02/27/2010,02/25/2008,2005 Influenza Vaccine [...] 81.6 kg (180 lb) 04/10/2019 8:50 AM TEAMSITE DEVELOPER Height 172.7 cm (5' 8) 04/10/2019 8:50 AM TEAMSITE DEVELOPER Body Mass Index 27.37 04/10/2019 8:50 AM TEAMSITE DEVELOPER Plan of Treatment Not on file Procedures Procedure Name Priority Date/Time Associated Diagnosis Comments CBC WITH PLATELETS & DIFFERENTIAL STAT 08/12/2020 5:29 PM CDT COMPREHENSIVE METABOLIC PANEL STAT 08/12/2020 5:29 PM CDT COLONOSCOPY Routine 04/10/2019 9:06 AM TEAMSITE DEVELOPER OCCULT BLOOD STOOL STAT 02/03/2019 7: 07 PM CDT LIPID REFLEX TO DIRECT LDL PANEL Routine 02/18/2014 9:10 AM TEAMSITE DEVELOPER HTN, goal below 140/90 from Last 3 Months or Most Recently Relevant to Health Maintenance Results * (ABNORMAL) CBC with platelets differential (08/12/2020 5:29 PM CDT) WBC 7.7 4.0 - 11.0 10e9/L 08/12/2020 6:03 PM CDT [facility] RBC Count 4.64 4.4 - 5.9 10e12/L 08/12/2020 6:03 PM CDT [facility] Hemoglobin 13.1(L) 13.3 - 17.7 g/dL 08/12/2020 6:03 PM CDT [facility] Hematocrit 40.8 40.0 - 53.0 % 08/12/2020 6:03 PM T [facility] MCV 88 78 - 100 fl 08/12/2020 6:03 PM CDT [facility] MCH 28.2 26.5 - 33.0 pg 08/12/2020 6:03 PM [facility] MCHC 32.1 31.5 - 36.5 g/dL 08/12/2020 6:03 PM [facility] RDW 14.1 10.0 - 15.0 % 08/12/2020 6:03 PM [facility] Platelet Count 263 150 - 450 10e9/L 08/12/2020 6:03 PM [facility] Diff Method Automated Method 08/12/2020 6:03 PM [facility] % Neutrophils 67.5 % 08/12/2020 6:03 PM [facility] % Lymphocytes 18.3 % 08/12/2020 6:03 PM [facility] % Monocytes 9.9 % 08/12/2020 6:03 PM [facility] % Eosinophils 3.0 % 08/12/2020 6:03 PM [facility] % Basophils 0.9 % 08/12/2020 6:03 PM [facility] % Immature Granulocytes 0.4 % 08/12/2020 6:03 PM [facility] Nucleated RBCs 0 0 /100 08/12/2020 6:03 PM [facility] Absolute Neutrophil 5.2 1.6 - 8.3 10e9/L 08/12/2020 6:03 PM [facility] Absolute Lymphocytes 1.4 0.8 - 5.3 10e9/L 08/12/2020 6:03 PM [facility] Absolute Monocytes 0.8 0.0 - 1.3 10e9/L 08/12/2020 6:03 PM [facility] Absolute Eosinophils 0.2 0.0 - 0.7 10e9/L 08/12/2020 6:03 PM [facility] Absolute Basophils 0.1 0.0 - 0.2 10e9/L 08/12/2020 6:03 PM [facility] Abs Immature Granulocytes 0.0 0 - 0.4 10e9/L 08/12/2020 6:03 PM [facility] Absolute Nucleated RBC 0.0 08/12/2020 6:03 PM CDT [facility] Blood 08/12/2020 5:29 PM CDT 08/12/2020 6:00 PM CDT Tomás Lee PA-C LAB - BLOOD ORDERABLES [facility] [place] [address] [phone] * (ABNORMAL) Comprehensive metabolic panel (08/12/2020 5:29 PM CDT) Sodium 143 133 - 144 mmol/L 08/12/2020 6:12 PM CDT [facility] Potassium 4.1 3.4 - 5.3 mmol/L 08/12/2020 6:12 PM T [facility] Chloride 110(H) 94 - 109 mmol/L 08/12/2020 6:12 PM T [facility] Carbon Dioxide 28 20 - 32 mmol/L 08/12/2020 6:20 PM T [facility] Anion Gap 5 3 - 14 mmol/L 08/12/2020 6:20 PM [facility] Glucose 95 70 - 99 mg/dL 08/12/2020 6:20 PM T [facility] Urea Nitrogen 20 7 - 30 mg/dL 08/12/2020 6:20 PM [facility] Creatinine 1.03 0.66 - 1.25 mg/dL 08/12/2020 6:20 PM [facility] GFR Estimate 68 >60 mL/min/{1. 73_m2} 08/12/2020 6:20 PM T [facility] Comment: Non GFR Calc Starting 04/01/2018, serum creatinine based estimated GFR (eGFR) will be calculated using the Chronic Kidney Disease Epidemiology Collaboration (CKD-EPI) equation. GFR Estimate If Black 79 >60 mL/min/{1. 73_m2} 08/12/2020 6:20 PM T [facility] Comment: GFR Calc Starting 04/01/2018, serum creatinine based estimated GFR (eGFR) will be calculated using the Chronic Kidney Disease Epidemiology Collaboration (CKD-EPI) equation. Calcium 8.9 8.5 - 10.1 mg/dL 08/12/2020 6:20 PM CDT [facility] Bilirubin Total 0.5 0.2 - 1.3 mg/dL 08/12/2020 6:21 PM CDT [facility] Albumin 3.4 3.4 - 5.0 g/dL 08/12/2020 6:21 PM CDT [facility] Protein Total 7.0 6.8 - 8.8 g/dL 08/12/2020 6:21 PM CDT [facility] Alkaline Phosphatase 66 40 - 150 U/L 08/12/2020 6:21 PM CDT [facility] ALT 9 0 - 70 U/L 08/12/2020 6:21 PM CDT [facility] AST 11 0 - 45 U/L 08/12/2020 6:21 PM CDT [facility] Blood 08/12/2020 5:29 PM CDT 08/12/2020 6:00 PM CDT Tomás Lee PA-C LAB - BLOOD ORDERABLES [facility] [address] [place] [address], [facility] [phone] [facility] [address] [place] [address], [facility] [phone] * COLONOSCOPY (04/10/2019 9:06 AM TEAMSITE DEVELOPER) COLONOSCOPY [facility] Patient Name: Homero Young ? Procedure [...] # PCF-H190DL, ?Endora # 217, SN # [id number] was introduced through ?the anus and advanced [...] history of colonic polyps CPT copyright 2018 [employer] [place] [employer]. All rights reserved. The codes documented in this report are preliminary and upon outpatient coder review may be revised to meet current compliance requirements. Electronically signed by Homero Eric MD __ Homero Eric MD 04/10/2019 9:34:07 AM I was physically present for the entire viewing portion of the exam. Homero Eric MD Number of Addenda: 0 Note Initiated On: 04/10/2019 9:06 AM MRN: ?[id number] Procedure Date: ? 04/10/2019 9:06:30 AM Scope Withdrawal Time: 0 hours 6 minutes 9 seconds Total Procedure Duration: 0 hours 12 minutes 0 seconds Estimated Blood Loss: ? Scope In: 9:11:12 AM Scope Out: 9:23:12 AM RADIOLOGY RESULTS 04/10/2019 9:06 AM TEAMSITE DEVELOPER Martha Ramires MD PROCEDURES RADIOLOGY RESULTS * (ABNORMAL) Occult blood stool (02/03/2019 7:07 PM CDT) Occult Blood Positive(A ) NEG^Negati ve 02/03/2019 7:26 PM CDT [facility] Comment: Called to ALYCIA PUCKETT (ERB) 02.03.19 AT 1926 BY ADALBERTO Stool specimen (specimen) 02/03/2019 7:07 PM CDT 02/03/2019 7:16 PM CDT Hamzah Quesada PA-C LAB - STOOLS ORDERABLES Performing Organization Address City/[facility]/ZIP Co de Phone Number [facility] [address] [phone] * Lipid panel reflex to direct LDL (02/18/2014 9:10 AM TEAMSITE DEVELOPER) Cholesterol 181 <200 mg/dL [facility] Comment: LDL Cholesterol is the primary guide to therapy. The NCEP recommends further evaluation of: patients with cholesterol greater than 200 mg/dL if additional risk factors are present, cholesterol greater than 240 mg/dL, triglycerides greater than 150 mg/dL, or HDL less than 40 mg/dL. Triglycerides 134 0 - 150 mg/dL [facility] Comment:Fasting specimen HDL Cholesterol 52 >40 mg/dL [facility] LDL Cholesterol Calculated 102 0 - 129 mg/dL [facility] Comment: LDL Cholesterol is the primary guide to therapy: LDL-cholesterol goal in high risk patients is <100 mg/dL and in very high risk patients is <70 mg/dL. VLDL-Cholesterol 27 0 - 30 mg/dL [facility] Cholesterol/HDL Ratio 3.5 0.0 - 5.[address] [facility] Blood specimen (specimen) 02/18/2014 9:10 AM TEAMSITE DEVELOPER 02/18/2014 3:05 PM TEAMSITE DEVELOPER Li Meyer UPHOLSTERY CUTTER ROOF PROMENADE TILE SETTER LAB - BLOOD ORDERABLES [facility] [address] [place] [address] from Last 3 Months or Most Recently Relevant to Health Maintenance Advance Directives For more information, please contact: [phone] Documents on File Type Date Recorded Patient Operations Vice President Expl anation Advance Directives and Living Will [...] maria victoria nt/legal decision maker Care Teams Brazer Controlled Atmospheric Furnace Relationship Specialty Start Date End Date [facility]- [address] [place] [address] PCP - General 04/10/19
--- OUTSIDE RECORDS SUMMARY | 2024-01-06 14:35 | XMS_ITS | Clinical Summary ---
Author Organization [place] Address [facility] [place] [address] Care Team Providers Care Weight Engineer Name Role Phone [facility], [facility]- Primary Care Provider Allergies Active Allergy Reactions [...] 81.6 kg (180 lb) 04/10/2019 8:50 AM PBX SUPERVISOR Height 172.7 cm (5' 8) 04/10/2019 8:50 AM PBX SUPERVISOR Body Mass Index 27.37 04/10/2019 8:50 AM PBX SUPERVISOR Plan of Treatment Health Maintenance Due Date Last Done Comments ANNUAL REVIEW OF HM ORDERS 1940 CT COLONOGRAPHY 1940 FLEX SIG 1940 sDNA (Cologuard) 1940 ZOSTER IMMUNIZATION (1 of 2) 1990 MEDICARE ANNUAL WELLNESS VISIT 03/09/2009 03/09/2008 RSV VACCINE (1 - 1-dose 75+ series) 09/09/2015 FALL RISK ASSESSMENT 11/23/2018 11/23/2017, 09/27/2016, 04/17/2016, Additional history exists LIPID 02/18/2019 02/18/2014, 11/13, 02/15/2009, Additional history exists ADVANCE CARE PLANNING 07/08/2019 07/07/2014, 013 FIT 02/04/2020 02/03/2019 BMP 08/12/2021 08/12/2020, 01/14, 02/03/2019, Additional history exists CBC 08/12/2021 08/12/2020, 01/14, 02/03/2019, Additional history exists CMP 08/12/2021 08/12/2020, 01/14, 11/23/2017, Additional history exists PHQ-2 (once per calendar year) 2023 09/27/2016, 04/17/2016, 01/05/2015 COVID-19 Vaccine ( season) 2023 01/26/2021, 06/25/2020, 06/04/2020 INFLUENZA VACCINE (#1) 2023 , 02/09/2019, 02/04/2018, [...] PM CDT COLONOSCOPY Routine 04/10/2019 9:06 AM PBX SUPERVISOR OCCULT BLOOD STOOL STAT 02/03/2019 7: 07 PM CDT LIPID REFLEX TO DIRECT LDL PANEL Routine 02/18/2014 9:10 AM PBX SUPERVISOR HTN, goal below 140/90 from Last 3 Months or Most Recently Relevant to Health Maintenance Results * (ABNORMAL) CBC with platelets differential (08/12/2020 5:29 PM CDT) WBC 7.7 4.0 - 11.0 10e9/L 08/12/2020 6:03 PM CDT [facility] RBC Count 4.64 4.4 - 5.9 10e12/L 08/12/2020 6:03 PM CDT [facility] Hemoglobin 13.1(L) 13.3 - 17.7 g/dL 08/12/2020 6:03 PM [facility] Hematocrit 40.8 40.0 - 53.0 % 08/12/2020 6:03 PM [facility] MCV 88 78 - 100 fl 08/12/2020 6:03 PM [facility] MCH 28.2 26.5 - 33.0 pg 08/12/2020 6:03 PM [facility] MCHC 32.1 31.5 - 36.5 g/dL 08/12/2020 6:03 PM [facility] RDW 14.1 10.0 - 15.0 % 08/12/2020 6:03 PM [facility] Platelet Count 263 150 - 450 10e9/L 08/12/2020 6:03 PM [facility] Diff Method Automated Method 08/12/2020 6:03 PM [facility] % Neutrophils 67.5 % 08/12/2020 6:03 PM [facility] % Lymphocytes 18.3 % 08/12/2020 6:03 PM [facility] % Monocytes 9.9 % 08/12/2020 6:03 PM [facility] % Eosinophils 3.0 % 08/12/2020 6:03 PM [facility] % Basophils 0.9 % 08/12/2020 6:03 PM [facility] % Immature Granulocytes 0.4 % 08/12/2020 6:03 PM [facility] Nucleated RBCs 0 0 /100 08/12/2020 6:03 PM [facility] Absolute Neutrophil 5.2 1.6 - 8.3 10e9/L 08/12/2020 6:03 PM [facility] Absolute Lymphocytes 1.4 0.8 - 5.3 10e9/L 08/12/2020 6:03 PM [facility] Absolute Monocytes 0.8 0.0 - 1.3 10e9/L 08/12/2020 6:03 PM [facility] Absolute Eosinophils 0.2 0.0 - 0.7 10e9/L 08/12/2020 6:03 PM [facility] Absolute Basophils 0.1 0.0 - 0.2 10e9/L 08/12/2020 6:03 PM T [facility] Abs Immature Granulocytes 0.0 0 - 0.4 10e9/L 08/12/2020 6:03 PM T [facility] Absolute Nucleated RBC 0.0 08/12/2020 6:03 PM T [facility] Blood 08/12/2020 5:29 PM CDT 08/12/2020 6:00 PM CDT Tomás Lee PA-C LAB - BLOOD ORDERABLES [facility] [address] [place], [place] [address] [phone] * (ABNORMAL) Comprehensive metabolic panel (08/12/2020 5:29 PM CDT) Sodium 143 133 - 144 mmol/L 08/12/2020 6:12 PM [facility] Potassium 4.1 3.4 - 5.3 mmol/L 08/12/2020 6:12 PM [facility] Chloride 110(H) 94 - 109 mmol/L 08/12/2020 6:12 PM [facility] Carbon Dioxide 28 20 - 32 mmol/L 08/12/2020 6:20 PM [facility] Anion Gap 5 3 - 14 mmol/L 08/12/2020 6:20 PM [facility] Glucose 95 70 - 99 mg/dL 08/12/2020 6:20 PM [facility] Urea Nitrogen 20 7 - 30 mg/dL 08/12/2020 6:20 PM [facility] Creatinine 1.03 0.66 - 1.25 mg/dL 08/12/2020 6:20 PM [facility] GFR Estimate 68 >60 mL/min/{1. 73_m2} 08/12/2020 6:20 PM [facility] Comment: Non GFR Calc Starting 04/01/2018, serum creatinine based estimated GFR (eGFR) will be calculated using the Chronic Kidney Disease Epidemiology Collaboration (CKD-EPI) equation. GFR Estimate If Black 79 >60 mL/min/{1. 73_m2} 08/12/2020 6:20 PM T [facility] Comment: GFR Calc Starting 04/01/2018, serum creatinine based estimated GFR (eGFR) will be calculated using the Chronic Kidney Disease Epidemiology Collaboration (CKD-EPI) equation. Calcium 8.9 8.5 - 10.1 mg/dL 08/12/2020 6:20 PM CDT [facility] Bilirubin Total 0.5 0.2 - 1.3 mg/dL 08/12/2020 6:21 PM CDT [facility] Albumin 3.4 3.4 - 5.0 g/dL 08/12/2020 6:21 PM T [facility] Protein Total 7.0 6.8 - 8.8 g/dL 08/12/2020 6:21 PM T [facility] Alkaline Phosphatase 66 40 - 150 U/L 08/12/2020 6:21 PM T [facility] ALT 9 0 - 70 U/L 08/12/2020 6:21 PM T [facility] AST 11 0 - 45 U/L 08/12/2020 6:21 PM T [facility] Blood 08/12/2020 5:29 PM CDT 08/12/2020 6:00 PM CDT Tomás Lee PA-C LAB - BLOOD ORDERABLES [facility] [address] [place] [address], [facility] [phone] [facility] [address] [place] [address], [facility] [phone] * COLONOSCOPY (04/10/2019 9:06 AM PBX SUPERVISOR) COLONOSCOPY [facility] Patient Name: Homero Young ? [...] and ?oxygen saturations were monitored continuously. The ?Carter-Waters Pediatric Colonoscope, Model # PCF-H190DL, ?Endora # 217, SN # [id number] was introduced through ?the anus and advanced [...] history of colonic polyps CPT copyright 2018 [employer]. All rights reserved. The codes documented in this report are preliminary and upon lead network engineer review may be revised to meet current compliance requirements. Electronically signed by Homero Eric MD __ Homero Eric MD 04/10/2019 9:34:07 AM I was physically present for the entire viewing portion of the exam. Homero Eric MD Number of Addenda: 0 Note Initiated On: 04/10/2019 9:06 AM MRN: ?[id number] Procedure Date: ? 04/10/2019 9:06:30 AM Scope Withdrawal Time: 0 hours 6 minutes 9 seconds Total Procedure Duration: 0 hours 12 minutes 0 seconds Estimated Blood Loss: ? Scope In: 9:11:12 AM Scope Out: 9:23:12 AM RADIOLOGY RESULTS 04/10/2019 9:06 AM PBX SUPERVISOR Martha Ramires MD PROCEDURES RADIOLOGY RESULTS * (ABNORMAL) Occult blood stool (02/03/2019 7:07 PM CDT) Occult Blood Positive(A ) NEG^Negati ve 02/03/2019 7:26 PM CDT [facility] Comment: Called to ALYCIA PUCKETT (ERB) 02.03.19 AT 1926 BY ADABLERTO Stool specimen (specimen) 02/03/2019 7:07 PM CDT 02/03/2019 7:16 PM CDT Hamzah Quesada PA-C LAB - STOOLS ORDERABLES [facility] [address] [place], [place] [address] [phone] * Lipid panel reflex to direct LDL (02/18/2014 9:10 AM PBX SUPERVISOR) Cholesterol 181 <200 mg/dL [facility] Comment: LDL Cholesterol is the primary guide to therapy. The NCEP recommends further evaluation of: patients with cholesterol greater than 200 mg/dL if additional risk factors are present, cholesterol greater than 240 mg/dL, triglycerides greater than 150 mg/dL, or HDL less than 40 mg/dL. Triglycerides 134 0 - 150 mg/dL [facility] Comment:Fasting specimen HDL Cholesterol 52 >40 mg/dL [facility] LDL Cholesterol Calculated 102 0 - 129 mg/dL [facility] Comment: LDL Cholesterol is the primary guide to therapy: LDL-cholesterol goal in high risk patients is <100 mg/dL and in very high risk patients is <70 mg/dL. VLDL-Cholesterol 27 0 - 30 mg/dL [facility] Cholesterol/HDL Ratio 3.5 0.0 - 5.0 [facility] Blood specimen (specimen) 02/18/2014 9:10 AM PBX SUPERVISOR 02/18/2014 3:05 PM PBX SUPERVISOR Li Meyer APRN CORONER TECHNICIAN LAB - BLOOD ORDERABLES Performing Organization Address City/State/[facility] Co de Phone Number [facility] [address] [place] [address] from Last 3 Months or Most Recently Relevant to Health Maintenance Advance Directives For more information, please contact: [phone] Documents on File Type Date Recorded Patient Jewelry Consultant Expl anation Advance Directives and Living Will 07/07/2014 Health Care Directiv e 07/07/14 * Full Code (Latest Code Status on File) Date Activated Date Inactivated Comments 02/04/2019 1:19 PM 04/10/2019 8:27 AM Question Answer Comments Code status determined by: Discussion with patie nt/legal decision maker * Full Code Date Activated Date Inactivated Comments 02/03/2019 10:35 PM 02/04/2019 1:19 PM Question Answer Comments Code status determined by: Discussion with patie nt/legal decision maker Care Teams Weight Engineer Relationship Specialty Start Date End Date [facility]- [address] [place] [address] PCP - General 04/10/19
--- OUTSIDE RECORDS SUMMARY | 2024-01-06 14:35 | XMS_ITS | Encounter Summary ---
Author Organization [place] Address [facility] [place] [address] Care Team Providers Care Sewing Machine Operator Plastic Zipper Name Role Phone Li Meyer CARLOS TUNNEL KILN FIRER Unavailable Un available Martha Ramires MD Primary Care Prov ider Martha Ramires MD Unavailable + Martha Ramires MD Unavailable + [facility]- Primary Care Provider [facility]- Primary Care Provider Encounter Details Date Type Department Care Team (Late st Contact Info) Description 10/27/[address] [id number] Ibis Chao MD XXX [place] INFO [place]OUND [place] [address] Social History Tobacco Use Types Packs/Day Years [...] CDTADMISSION HISTORY & PHYSICAL AMRIK YOUNG [address] [facility] IBIS CHAO MD 10/27/03 CC: Amrik [...] his were home wor andrey on a [email or web address] project. They had unloaded some flagstone from [...] dehydration and physical e xertion, cardiac (R/O [place] and tele for dysrhythmias), neurlologic (ischemic or toxin-chronic ETOH) 2. ETOH abuse/suspect dependence - opportunity for intervention, is supportive 3. Hypertension - currently sub-optimal control and labile (was in range on 10/14/03 in clinic) 4. Contusions and fac ial laceration PLAN: 1. R/O [place], Cardiology Consult, Neurology Consult, Psychology/Psychiatry and Chem Dep 2. ETOH withdrawal protocol, hydration, Chem Dep, Psych 3. May benefit from B-mague 4 . Local cares Ibis Chao MD documented in this encounter Plan of Treatment Not on file documented as of this encounter Visit Diagnoses Not on filedocumented in this encounter Care Teams Sewing Machine Operator Plastic Zipper Relationship Specialty [place] [address] [place] [address] PCP - General Family Practice 04/17/16 02/02/19 Martha Ramires MD PRIMARY ENT [id number] [facility] [address] [place], [place] [phone] PCP - Assigned PCP 05/22/15 06/17/18 [facility]- [address] [place] [address] PCP - General 02/03/19 04/09/19 [facility]- [address] [place] [address] PCP - General 04/10/19 Li Meyer APRN TUNNEL KILN FIRER Nurse Practitioner Nurse Practitioner 02/17/14 08/09/23 Martha Ramires MD PRIMARY ENT [id number] [facility] [address] [place] [address] Assigned PCP 05/22/15 11/26/20 documented as of this encounter
== END 2024-01-06 14:33 | disposition home or self-care (01) ==
LOC: FRMREF 14:33
PROVIDERS: PCP Family Medicine; Visit Provider Family Medicine
DX: I10 Essential (primary) hypertension (principal); R11.10 Vomiting, unspecified
CPT/HCPCS: 80053

== ENCOUNTER 2024-07-24 09:39 | Outpatient (CLI) | payer MEDICARE, SELFPAY | END 2024-07-24 09:40 | disposition home or self-care (01) | PROVIDERS: PCP Family Medicine; Visit Provider Family Medicine | DX: Z12.5 Encounter for screening for malignant neoplasm of prostate (principal); F10.21 Alcohol dependence, in remission; I10 Essential (primary) hypertension; R73.09 Other abnormal glucose | CPT/HCPCS: 80053; 82043; 82570; G0103 ==